=== PATIENT | male | born 1945 | race Caucasian/White ===

== ENCOUNTER 2019-02-05 17:53 | Emergency (ER) | payer MEDICARE, BC ==
[2019-02-05] MEDS ORDERED: Sodium Chloride 0.9% 10 ML Syringe FLUSH PRN ×2 (18:31→21:24)
[2019-02-05] MEDS ORDERED: Cefepime 2 GM in Sodium Chloride 0.9% 100 ML IV ONE (18:31)
--- NOTE | 2019-02-05 18:37 | EDM.PDOC ---
<Duke Orozco W - Last Filed: 02/05/19 23:12> ED HPI GENERAL MEDICAL PROBLEM - General Chief Complaint: Fever Stated Complaint: fever Time Seen by Provider: 02/05/19 17:59 - History of Present Illness INITIAL COMMENTS - FREE TEXT/NARRATIVE: Cont Duke Orozco PA-C Assumed care for patient at shift change. Pt. last round of chemo 02/03/19 consisting of Taxotere, dexamethasone and Gemcitabine. He also had a Neulasta injection. WBC that day were 3.1. Pt. denies any rash. No nausea or vomiting. He states that he did have some bright red blood on the toilet paper when he wiped after having a BM today. No melena. No hematemesis. Complains of some LLQ abdominal pain, but states that he has this intermittently in the past. No known history of diverticulosis or diverticulitis. Denies any dysuria. Denies any blood in his urine. No chest pain or shortness of breath. Denies any cough. - Related Data Allergies Allergy/AdvReac Type Severity Reaction Status Date / Time No Known Allergies Allergy Verified 02/05/19 18:07 Home Meds: Home Meds Allopurinol [Zyloprim] 150 mg PO DAILY 02/05/19 [History] Aspirin 81 mg PO DAILY 02/05/19 [History] Carbidopa/Levodopa [Sinemet 25-100 mg Tablet] 1 each PO TID 02/05/19 [History] Cetirizine [ZyrTEC] 10 mg PO DAILY 02/05/19 [History] Cholecalciferol (Vitamin D3) [Vitamin D3] 1,000 unit PO DAILY 02/05/19 [History] Docusate Sodium [Stool Softener] 250 mg PO DAILY 02/05/19 [History] Docusate Sodium/Sennosides [Senokot-S] 1 each PO DAILY 02/05/19 [History] Flecainide [Tambocor] 50 mg PO Q12H 02/05/19 [History] Hydrocodone/Acetaminophen [[place] 10-325 Tablet] 1 each PO Q4H PRN 02/05/19 [ History] Lansoprazole [Prevacid] 15 mg PO DAILY 02/05/19 [History] Metoprolol Succinate [Toprol XL 100mg] 50 mg PO DAILY 02/05/19 [History] Prochlorperazine Maleate [Compazine] 10 mg PO QID 02/05/19 [History] Course - Vital Signs Last Recorded V/S: Last Vital Signs Temp 37.6 C 02/05/19 17:53 Pulse 96 02/05/19 17:53 Resp 18 02/05/19 17:53 BP 116/63 02/05/19 17:53 Pulse Ox 96 02/05/19 17:53 - Orders/Labs/Meds Labs: Laboratory Tests 02/05/19 02/05/19 02/05/19 Range/Units 19:05 19:05 19:05 WBC 6.0 (4.0-10.0) x10^3/uL RBC 3.00 L (4.5-6.0) x10^6/uL Hgb 9.4 L (14.0-18.0) g/dL Hct 28.1 L (40.0-52.0) % MCV 93.7 H (78.0-93.0) fL MCH 31.3 (26.0-32.0) pg MCHC 33.5 (32.0-36.0) g/dL RDW Coeff of [place] 14.3 (10.0-15.0) % Plt Count 65 L (130-400) x10^3/uL Neut % (Auto) 81.9 H (50.0-80.0) % Lymph % (Auto) 14.0 L (25.0-50.0) % Moody % (Auto) 0.5 L (2.0-11.0) % Eos % (Auto) 3.3 (0.0-4.0) % Baso % (Auto) 0.3 (0.2-1.2) % Sodium 137 (136-145) mmol/L Potassium 3.9 (3.5-5.1) mmol/L Chloride 102 (98-107) mmol/L Carbon Dioxide 24 (21-32) mmol/L Anion Gap 14.9 (10-20) mmol/L BUN 18 (7-18) mg/dL Creatinine 0.7 (0.70-1.30) mg/dL Est Cr Clr Drug Dosing TNP Estimated GFR (MDRD) > 60 Glucose 122 H (74-106) mg/dL Lactic Acid 0.7 (0.4-2.0) mmol/L Calcium 8.6 (8.5-10.1) mg/dL Corrected Calcium 9.40 (8.5-10.1) mg/dL Total Bilirubin 0.6 (0.2-1.0) mg/dL AST 32 (15-37) U/L ALT 19 (16-63) U/L Alkaline Phosphatase 75 (46-116) U/L C-Reactive Protein 8.1 H (<=0.9) mg/dL Total Protein 6.5 (6.4-8.2) g/dL Albumin 3.0 L (3.4-5.0) g/dL Globulin 3.5 Albumin/Globulin Ratio 0.86 Urine Color (YELLOW) POC Urine Appearance (CLEAR) POC Urine pH (5.0-8.0) Ur Specific [place] (1.005-1.030) POC Urine Protein (NEGATIVE) POC Ur Glucose (UA) (NEGATIVE) POC Urine Ketones (NEGATIVE) POC Ur Occult Blood (NEGATIVE) POC Urine Nitrite (NEGATIVE) POC Urine Bilirubin (NEGATIVE) POC Urine Urobilinogen (0.2) POC U Leukocyte Esteras (NEGATIVE) 02/05/19 Range/Units 22:00 WBC (4.0-10.0) x10^3/uL RBC (4.5-6.0) x10^6/uL Hgb (14.0-18.0) g/dL Hct (40.0-52.0) % MCV (78.0-93.0) fL MCH (26.0-32.0) pg MCHC (32.0-36.0) g/dL RDW Coeff of [place] (10.0-15.0) % Plt Count (130-400) x10^3/uL Neut % (Auto) (50.0-80.0) % Lymph % (Auto) (25.0-50.0) % Moody % (Auto) (2.0-11.0) % Eos % (Auto) (0.0-4.0) % Baso % (Auto) (0.2-1.2) % Sodium (136-145) mmol/L Potassium (3.5-5.1) mmol/L Chloride (98-107) mmol/L Carbon Dioxide (21-32) mmol/L Anion Gap (10-20) mmol/L BUN (7-18) mg/dL Creatinine (0.70-1.30) mg/dL Est Cr Clr Drug Dosing Estimated GFR (MDRD) Glucose (74-106) mg/dL Lactic Acid (0.4-2.0) mmol/L Calcium (8.5-10.1) mg/dL Corrected Calcium (8.5-10.1) mg/dL Total Bilirubin (0.2-1.0) mg/dL AST (15-37) U/L ALT (16-63) U/L Alkaline Phosphatase (46-116) U/L C-Reactive Protein (<=0.9) mg/dL Total Protein (6.4-8.2) g/dL Albumin (3.4-5.0) g/dL Globulin Albumin/Globulin Ratio Urine Color Swain H (YELLOW) POC Urine Appearance Clear (CLEAR) POC Urine pH 6.5 (5.0-8.0) Ur Specific [place] 1.015 (1.005-1.030) POC Urine Protein 30 H (NEGATIVE) POC Ur Glucose (UA) Negative (NEGATIVE) POC Urine Ketones Negative (NEGATIVE) POC Ur Occult Blood Negative (NEGATIVE) POC Urine Nitrite Negative (NEGATIVE) POC Urine Bilirubin Small (NEGATIVE) POC Urine Urobilinogen 1.0 (0.2) POC U Leukocyte Esteras Negative (NEGATIVE) Meds: Medications Discontinued Medications Generic Name Dose Route Start Last Admin Trade Name Kevq PRN Reason Stop Dose Admin Doxycycline Monohydrate 1 packet 02/05/19 22:17 02/05/19 22:33 Take Home: Doxycycline 100 Mg, 4 Tab Pack PO 02/05/19 22:18 1 packet ONETIME ONE Administration Heparin Sodium (Porcine) Confirm 02/05/19 22:42 02/05/19 22:45 Heparin Lock Flush 100 Units/Ml Administered 02/05/19 22:43 500 units Dose Administration 500 units .ROUTE .STK-MED ONE Cefepime HCl 2 gm/ Sodium 100 mls @ 200 mls/hr 02/05/19 18:31 02/05/19 19:11 Chloride IV 02/05/19 19:00 200 mls/hr STAT ONE Administration Sodium Chloride 1,000 mls @ 100 mls/hr 02/05/19 21:07 02/05/19 21:23 Normal Saline IV 02/06/19 07:06 100 mls/hr .BOLUS ONE Administration Iopamidol 100 ml 02/05/19 20:06 02/05/19 20:56 Isovue-300 (61%) IVPUSH 02/05/19 20:07 100 ml ONETIME ONE Administration Sodium Chloride 10 ml 02/05/19 18:31 Saline Flush FLUSH ASDIRECTED PRN Keep Vein Open Sodium Chloride 10 ml 02/05/19 21:24 Saline Flush FLUSH ASDIRECTED PRN Keep Vein Open - Radiology Interpretation Free Text/Narrative:: CT chest abdomen and pelvis revealed some mild bibasilar atelectasis but no acute infiltrate. Departure - Departure Time of Disposition: 10:15 Disposition: Home, Self-Care 01 Clinical Impression: Fever chills, Atelectasis - Discharge Information Instructions: Doxycycline tablets or capsules, Acetaminophen tablets or caplets , Fever, Adult, [id number] Referrals: Suri Daniels MD [Primary Care Provider] - Forms: ED Department Discharge Additional Instructions: Start doxycycline 100mg twice daily for 10 days. Continue with your other medications. Tylenol as needed for fever/discomfort. Return to ER if worsening fever, lightheadedness, confusion, abdominal pain, chest pain, or shortness of breath. Follow-up with heme/onc in 7-10 days, sooner if continuing to have problems. You are certainly welcome to return to the ER or feel free to call at any time. - Assessment/Plan Plan: Start doxycycline 100mg twice daily for 10 days. Continue with your other medications. Tylenol as needed for fever/discomfort. Return to ER if worsening fever, lightheadedness, confusion, abdominal pain, chest pain, or shortness of breath. Follow-up with heme/onc in 7-10 days, sooner if continuing to have problems. You are certainly welcome to return to the ER or feel free to call at any time. <Fede Jimenez - Last Filed: 02/07/19 07:47> ED HPI GENERAL MEDICAL PROBLEM - General Source of Information: Reports: Patient, Family, Provider (Dr. Rosa at [facility] consulted, orders received) History Limitations: Reports: No Limitations - History of Present Illness INITIAL COMMENTS - FREE TEXT/NARRATIVE: Patient comes in with concerns for fever. Temperature at home was over 101F and he states he has chills. They did call oncologist production operator at [facility] and were told to present to the ER for neutropenic concerns Received last round of chemo on . He has no other complaints this evening. 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 Dr. Duke Rosa contacted regarding patient concerns. Onset: Sudden Duration: Intermittent Severity: Moderate Past Medical History Oncologic (Cancer) History: Reports: Other (See Below) Other Oncologic History: sarcoma Social & Family History - Tobacco Use Smoking Status *Q: Unknown Ever Smoked ED ROS GENERAL - Review of Systems Review Of Systems: See Below Constitutional: Reports: Fever, Chills HEENT: Reports: No Symptoms Respiratory: Reports: No Symptoms Cardiovascular: Reports: No Symptoms Endocrine: Reports: No Symptoms GI/Abdominal: Reports: No Symptoms : Reports: No Symptoms Musculoskeletal: Reports: No Symptoms Skin: Reports: No Symptoms Neurological: Reports: Other (shaking of the hands) Psychiatric: Reports: No Symptoms Hematologic/Lymphatic: Reports: No Symptoms Immunologic: Reports: No Symptoms ED EXAM, SEPSIS - Physical Exam Exam: See Below Exam Limited By: No Limitations General Appearance: Alert, WD/WN, No Apparent Distress Eye Exam: Bilateral Eye: EOMI, PERRL Ears: Normal TMs Throat/Mouth: Normal Inspection, Normal Lips, Normal Teeth, Normal Gums, Normal Oropharynx, Normal Voice, No Airway Compromise Head: Atraumatic, Normocephalic Neck: Normal Inspection, Supple, Non-Tender, Full Range of Motion Respiratory/Chest: No Respiratory Distress, Lungs Clear, Normal Breath Sounds, No Accessory Muscle Use, Chest Non-Tender Cardiovascular: Normal Peripheral Pulses, Regular Rate, Rhythm, No Edema, No Gallop, No JVD, No Murmur, No Rub GI/Abdominal Exam: Normal Bowel Sounds, Soft, Non-Tender, No Organomegaly, No Distention, No Abnormal Bruit, No Mass, Pelvis Stable Back: Normal Inspection, Full Range of Motion, NT Extremities: Normal Inspection, Normal Range of Motion, Non-Tender, No Pedal Edema, Normal Capillary Refill Neurological: Alert, Oriented, CN II-XII Intact, Normal Cognition, Normal Gait, Normal Reflexes, No Motor/Sensory Deficits Psychiatric: Normal Affect, Normal Mood Skin: Warm, Dry, Intact, Normal Color, No Rash Lymphatic: Bilateral: No Adenopathy Course - Orders/Labs/Meds Labs: Laboratory Tests 02/05/19 02/05/19 02/05/19 Range/Units 19:05 19:05 19:05 WBC 6.0 (4.0-10.0) x10^3/uL RBC 3.00 L (4.5-6.0) x10^6/uL Hgb 9.4 L (14.0-18.0) g/dL Hct 28.1 L (40.0-52.0) % MCV 93.7 H (78.0-93.0) fL MCH 31.3 (26.0-32.0) pg MCHC 33.5 (32.0-36.0) g/dL RDW Coeff of [place] 14.3 (10.0-15.0) % Plt Count 65 L (130-400) x10^3/uL Neut % (Auto) 81.9 H (50.0-80.0) % Lymph % (Auto) 14.0 L (25.0-50.0) % Moody % (Auto) 0.5 L (2.0-11.0) % Eos % (Auto) 3.3 (0.0-4.0) % Baso % (Auto) 0.3 (0.2-1.2) % Sodium 137 (136-145) mmol/L Potassium 3.9 (3.5-5.1) mmol/L Chloride 102 (98-107) mmol/L Carbon Dioxide 24 (21-32) mmol/L Anion Gap 14.9 (10-20) mmol/L BUN 18 (7-18) mg/dL Creatinine 0.7 (0.70-1.30) mg/dL Est Cr Clr Drug Dosing TNP Estimated GFR (MDRD) > 60 Glucose 122 H (74-106) mg/dL Lactic Acid 0.7 (0.4-2.0) mmol/L Calcium 8.6 (8.5-10.1) mg/dL Corrected Calcium 9.40 (8.5-10.1) mg/dL Total Bilirubin 0.6 (0.2-1.0) mg/dL AST 32 (15-37) U/L ALT 19 (16-63) U/L Alkaline Phosphatase 75 (46-116) U/L C-Reactive Protein 8.1 H (<=0.9) mg/dL Total Protein 6.5 (6.4-8.2) g/dL Albumin 3.0 L (3.4-5.0) g/dL Globulin 3.5 Albumin/Globulin Ratio 0.86 Urine Color (YELLOW) POC Urine Appearance (CLEAR) POC Urine pH (5.0-8.0) Ur Specific [place] (1.005-1.030) POC Urine Protein (NEGATIVE) POC Ur Glucose (UA) (NEGATIVE) POC Urine Ketones (NEGATIVE) POC Ur Occult Blood (NEGATIVE) POC Urine Nitrite (NEGATIVE) POC Urine Bilirubin (NEGATIVE) POC Urine Urobilinogen (0.2) POC U Leukocyte Esteras (NEGATIVE) 02/05/19 Range/Units 22:00 WBC (4.0-10.0) x10^3/uL RBC (4.5-6.0) x10^6/uL Hgb (14.0-18.0) g/dL Hct (40.0-52.0) % MCV (78.0-93.0) fL MCH (26.0-32.0) pg MCHC (32.0-36.0) g/dL RDW Coeff of [place] (10.0-15.0) % Plt Count (130-400) x10^3/uL Neut % (Auto) (50.0-80.0) % Lymph % (Auto) (25.0-50.0) % Moody % (Auto) (2.0-11.0) % Eos % (Auto) (0.0-4.0) % Baso % (Auto) (0.2-1.2) % Sodium (136-145) mmol/L Potassium (3.5-5.1) mmol/L Chloride (98-107) mmol/L Carbon Dioxide (21-32) mmol/L Anion Gap (10-20) mmol/L BUN (7-18) mg/dL Creatinine (0.70-1.30) mg/dL Est Cr Clr Drug Dosing Estimated GFR (MDRD) Glucose (74-106) mg/dL Lactic Acid (0.4-2.0) mmol/L Calcium (8.5-10.1) mg/dL Corrected Calcium (8.5-10.1) mg/dL Total Bilirubin (0.2-1.0) mg/dL AST (15-37) U/L ALT (16-63) U/L Alkaline Phosphatase (46-116) U/L C-Reactive Protein (<=0.9) mg/dL Total Protein (6.4-8.2) g/dL Albumin (3.4-5.0) g/dL Globulin Albumin/Globulin Ratio Urine Color Swain H (YELLOW) POC Urine Appearance Clear (CLEAR) POC Urine pH 6.5 (5.0-8.0) Ur Specific [place] 1.015 (1.005-1.030) POC Urine Protein 30 H (NEGATIVE) POC Ur Glucose (UA) Negative (NEGATIVE) POC Urine Ketones Negative (NEGATIVE) POC Ur Occult Blood Negative (NEGATIVE) POC Urine Nitrite Negative (NEGATIVE) POC Urine Bilirubin Small (NEGATIVE) POC Urine Urobilinogen 1.0 (0.2) POC U Leukocyte Esteras Negative (NEGATIVE) Meds: Medications Discontinued Medications Generic Name Dose Route Start Last Admin Trade Name Freq PRN Reason Stop Dose Admin Doxycycline Monohydrate 1 packet 02/05/19 22:17 02/05/19 22:33 Take Home: Doxycycline 100 Mg, 4 Tab Pack PO 02/05/19 22:18 1 packet ONETIME ONE Administration Heparin Sodium (Porcine) Confirm 02/05/19 22:42 02/05/19 22:45 Heparin Lock Flush 100 Units/Ml Administered 02/05/19 22:43 500 units Dose Administration 500 units .ROUTE .STK-MED ONE Cefepime HCl 2 gm/ Sodium 100 mls @ 200 mls/hr 02/05/19 18:31 02/05/19 19:11 Chloride IV 02/05/19 19:00 200 mls/hr STAT ONE Administration Sodium Chloride 1,000 mls @ 100 mls/hr 02/05/19 21:07 02/05/19 21:23 Normal Saline IV 02/06/19 07:06 100 mls/hr .BOLUS ONE Administration Iopamidol 100 ml 02/05/19 20:06 02/05/19 20:56 Isovue-300 (61%) IVPUSH 02/05/19 20:07 100 ml ONETIME ONE Administration Sodium Chloride 10 ml 02/05/19 18:31 Saline Flush FLUSH ASDIRECTED PRN Keep Vein Open Sodium Chloride 10 ml 02/05/19 21:24 Saline Flush FLUSH ASDIRECTED PRN Keep Vein Open ED Communication - ED Communication Date/Time Date: 01/29/19 Time Called: 18:00 - Discussed Case With (1) Discussed Case With (1): 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 Rosa was contacted as patient stated I was to do so. Plan for labs was developed including CBC, lactic acid, blood cultures)
[2019-02-05 19:46] LABS: CHLORIDE,CL 102 mmol/L (98-107); SODIUM,NA 137 mmol/L (136-145)
[2019-02-05 20:01] LABS: ANION GAP 14.9 mmol/L (10-20)
[2019-02-05] MEDS ORDERED: Iopamidol 612 MG/ML 100 ML Bottle IVPUSH ONE (20:06)
[2019-02-05] MEDS ORDERED: Sodium Chloride 0.9% 1,000 ML IV ONE (21:07)
[2019-02-05] MEDS ORDERED: Take Home: Doxycycline 100 MG Tab, 4 Tab Pack PO ONE (22:17)
--- NOTE | 2019-02-06 12:03 | CT ---
[id number] CT/CT Chest Abdomen Pelvis W IV Exam: CT Chest Abdomen Pelvis W IV Clinical Data: FEVER OF UNKNOWN ORIGIN. PATIENT ON CHEMOTHERAPY. COMPARISON: NO PREVIOUS SIMILAR EXAM IS AVAILABLE FINDINGS: There is minimal scarring at the left lung base. There is no acute infiltrate. Question is raised if there has been previous surgery at the left lung base. The mediastinum shows no mass or adenopathy. The great vessels are intact. A chest port is present. The liver and spleen, kidneys and adrenals, pancreas and aorta are unremarkable. The gallbladder is not distended. There is no evidence of appendicitis. The pelvis shows no mass, adenopathy, or abscess. IMPRESSION: NO ACUTE ABNORMALITY IDENTIFIED. Alejandro Lizarraga MD 02/06/19 [id number] Thank you for allowing us to participate in the care of your patient.
== END 2019-02-05 22:55 | disposition home or self-care (01) ==
LOC: VM.ED 17:53
DX: J98.11 Atelectasis (principal); R50.9 Fever, unspecified; Z79.82 Long term (current) use of aspirin; Z79.899 Other long term (current) drug therapy
CPT/HCPCS: 36415; 71260; 74177; 80053; 81002; 83605; 85025; 86140; 87040; 87804; 96361; 96365; 96375; 99284; A9270; J0692; J1642; J7030; J7050; Q9967; 99283-GF

== ENCOUNTER 2019-12-16 16:39 | Inpatient (IN) | payer MEDICARE, BC ==
[2019-12-16] MEDS ORDERED: Sodium Chloride 0.9% 10 ML Syringe FLUSH PRN (16:44)
[2019-12-16] MEDS ORDERED: Piperacillin/Tazobactam 4.5 GM in Sodium Chloride 0.9% 100 ML IV ONE (17:06)
--- NOTE | 2019-12-16 17:06 | EDM.PDOC ---
ED HPI GENERAL MEDICAL PROBLEM - General Chief Complaint: Fever Time Seen by Provider: 12/16/19 16:41 Source of Information: Reports: Patient, Family, Old Records History Limitations: Reports: No Limitations - History of Present Illness INITIAL COMMENTS - FREE TEXT/NARRATIVE: Pt. presents to ER with complaints of weakness. 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 He is currently on his third chemo regimen (lartuvo) due to worsening metastatic disease, previously having been on Gemzar and Docetaxal and then on Yondelis. Pt. was seen in the clinic by oncology yesterday. He was unable to undergo chemo yesterday due to pancytopenia. Yesterday his WBCs were 2.6, HGB was 8.8, and platlets were 30. He was afebrile, and was sent home. He states that today his weakness worsened. He was unable to transfer off the toilet. Pt. called his oncologist who advised she call 911 and have the patient brought to the ER. Today, the patient has been febrile, chilled and extremely weak. Denies any rashes. No significant cough. No sore throat. Denies any ear pain. No sinus congestion. No rhinorrhea. He denies any dysuria, frequency or urgency. He has not noticed if his urine has been dark or concentrated. Pt. denies any abdominal discomfort. No nausea, vomiting, or diarrhea. No melena , hematochezia, or hematemesis. Onset: Today Onset Date: 12/16/19 Location: Reports: Generalized Associated Symptoms: Reports: Fever/Chills, Loss of Appetite, Malaise, Weakness - Related Data Allergies Allergy/AdvReac Type Severity Reaction Status Date / Time No Known Allergies Allergy Verified 12/16/19 16:58 Home Meds: Home Meds Aspirin 81 mg PO DAILY 02/05/19 [History] Carbidopa/Levodopa [Sinemet 25-100 mg Tablet] 1.5 each PO TID 02/05/19 [History] Cholecalciferol (Vitamin D3) [Vitamin D3] 4,000 unit PO DAILY 02/05/19 [History] Flecainide [Tambocor] 50 mg PO Q12H 02/05/19 [History] Lansoprazole [Prevacid] 15 mg PO DAILY 02/05/19 [History] Metoprolol Succinate [Toprol XL 100mg] 50 mg PO DAILY 02/05/19 [History] Prochlorperazine Maleate [Compazine] 10 mg PO QID PRN 02/05/19 [History] allopurinoL [Zyloprim] 150 mg PO DAILY 02/05/19 [History] Acetaminophen [Tylenol] 650 mg PO Q4H PRN 12/16/19 [History] Cyanocobalamin (Vitamin B12) [Vitamin B12] 250 mcg PO DAILY 12/16/19 [History] Docusate Sodium [Colace] 100 mg PO BID 12/16/19 [History] Multivitamin with Minerals [Multiple Vitamin] 1 tab PO DAILY 12/16/19 [History] Ondansetron [Zofran] 8 mg PO Q8H PRN 12/16/19 [History] Polyethylene Glycol 3350 [MiraLAX] 1 pack PO DAILY PRN 12/16/19 [History] Simvastatin [Zocor] 10 mg PO BEDTIME 12/16/19 [History] Sodium Chloride [Saline Nasal [place]] 2 sprays INH Q2HR PRN 12/16/19 [History] dexAMETHasone [Dexamethasone] 8 mg PO DAILY 12/16/19 [History] Past Medical History Cardiovascular History: Reports: Afib, Arrhythmia, High Cholesterol Musculoskeletal History: Reports: Gout, Osteoarthritis Neurological History: Reports: Parkinson's Oncologic (Cancer) History: Reports: Other (See Below) Other Oncologic History: sarcoma - Past Surgical History Respiratory Surgical History: Reports: Lung Biopsies, Lung Resection Social & Family History - Tobacco Use Smoking Status *Q: Former Smoker ED ROS GENERAL - Review of Systems Review Of Systems: See Below Constitutional: Reports: Fever, Chills, Malaise, Weakness, Fatigue HEENT: Reports: No Symptoms Respiratory: Reports: No Symptoms Cardiovascular: Reports: No Symptoms, Other (fatigue). Denies: Chest Pain, Palpitations Endocrine: Reports: No Symptoms GI/Abdominal: Reports: No Symptoms : Reports: No Symptoms Musculoskeletal: Reports: No Symptoms Skin: Reports: No Symptoms Neurological: Reports: No Symptoms, Other (No neck stiffness). Denies: Headache , Numbness Psychiatric: Reports: No Symptoms Hematologic/Lymphatic: Reports: Other (pancytopenia) Immunologic: Reports: No Symptoms ED EXAM, GENERAL - Physical Exam Exam: See Below Exam Limited By: No Limitations General Appearance: Alert, No Apparent Distress Eye Exam: Bilateral Eye: EOMI, Normal Fundi, Normal Inspection, PERRL Ears: Normal External Exam, Normal Canal, Hearing Grossly Normal, Normal TMs Ear Exam: Bilateral Ear: Auricle Normal, Canal Normal, TM normal Nose: Normal Inspection, Normal Mucosa, No Blood Throat/Mouth: Normal Inspection, Normal Lips, Normal Teeth, Normal Gums, Normal Oropharynx, Normal Voice, No Airway Compromise Head: Atraumatic, Normocephalic Neck: Normal Inspection, Supple, Non-Tender, Full Range of Motion Respiratory/Chest: No Respiratory Distress, Lungs Clear, Normal Breath Sounds, No Accessory Muscle Use, Chest Non-Tender Cardiovascular: Normal Peripheral Pulses, Regular Rate, Rhythm, Tachycardia, Other Peripheral Pulses: 4+: Radial (L) GI/Abdominal: Soft, Non-Tender, No Organomegaly, No Distention, No Mass (Male) Exam: Deferred Rectal (Males) Exam: Deferred Back Exam: Normal Inspection, Full Range of Motion Extremities: Normal Inspection, Normal Range of Motion, Non-Tender, No Pedal Edema, Normal Capillary Refill, Other (L AKA, no edema on R. states he had been experiencing some edema to the extremity that has improved with Lasix.) Neurological: Alert, Oriented, CN II-XII Intact, Normal Cognition, No Motor/ Sensory Deficits, Slow to Respond Psychiatric: Normal Affect, Flat Affect Skin Exam: Warm, Dry, Normal Color, No Rash Lymphatic: No Adenopathy EKG INTERPRETATION Rhythm: NSR QRS: RBBB Course - Vital Signs Last Recorded V/S: Last Vital Signs Temp 35.9 C 12/18/19 14:00 Pulse 79 12/18/19 14:00 Resp 18 12/18/19 09:05 BP 115/62 12/18/19 14:00 Pulse Ox 97 12/18/19 14:00 - Orders/Labs/Meds Orders: Medication Orders Acetaminophen (Tylenol) 650 mg PO Q4H PRN PRN Reason: Pain (Mild 1-3)/fever Last Admin: 12/17/19 16:02 Dose: 650 mg Admin: 12/17/19 03:43 Dose: 650 mg Allopurinol (Zyloprim) 150 mg PO DAILY [facility] Last Admin: 12/18/19 07:40 Dose: 150 mg Admin: 12/17/19 08:51 Dose: 150 mg Aspirin (Aspirin) 81 mg PO DAILY [facility] Last Admin: 12/18/19 07:42 Dose: 81 mg Admin: 12/17/19 08:52 Dose: 81 mg Carbidopa/Levodopa (Sinemet 25-100 Mg) 1.5 tab PO TID [facility] Last Admin: 12/18/19 11:27 Dose: 1.5 tab Admin: 12/18/19 07:39 Dose: 1.5 tab Admin: 12/17/19 20:35 Dose: 1.5 tab Admin: 12/17/19 11:11 Dose: 1.5 tab Admin: 12/17/19 08:50 Dose: 1.5 tab Admin: 12/16/19 20:38 Dose: 1.5 tab Flecainide Acetate (Tambocor) 50 mg PO Q12HR [facility] Last Admin: 12/18/19 07:40 Dose: 50 mg Admin: 12/17/19 20:37 Dose: 50 mg Admin: 12/17/19 08:51 Dose: 50 mg Admin: 12/16/19 20:38 Dose: 50 mg Piperacillin Sod/Tazobactam (Sod 3.375 gm/ Sodium Chloride) 100 mls @ 200 mls/ hr IV Q6H [facility] Last Admin: 12/18/19 08:59 Dose: 200 mls/hr Metoprolol Succinate (Toprol Xl) 50 mg PO DAILY [facility] Last Admin: 12/18/19 07:40 Dose: 50 mg Admin: 12/17/19 08:52 Dose: 50 mg Omeprazole (Omeprazole) 20 mg PO DAILY@0700 [facility] Last Admin: 12/18/19 06:43 Dose: 20 mg Admin: 12/17/19 06:37 Dose: 20 mg Ondansetron HCl (Zofran Odt) 8 mg PO Q8H PRN PRN Reason: NAUSEA Prochlorperazine Maleate (Compazine) 10 mg PO QID PRN PRN Reason: VOMITING Last Admin: 12/18/19 06:43 Dose: 10 mg Admin: 12/17/19 17:45 Dose: 10 mg Admin: 12/16/19 20:38 Dose: 10 mg Simvastatin (Zocor) 10 mg PO BEDTIME [facility] Last Admin: 12/17/19 20:36 Dose: 10 mg Admin: 12/16/19 20:38 Dose: 10 mg Sodium Chloride (Saline Flush) 10 ml FLUSH ASDIRECTED PRN PRN Reason: Keep Vein Open Last Admin: 12/16/19 22:57 Dose: 10 ml Sodium Chloride ([place] Nasal [place]) 0 ml NASBOTH Q2H PRN PRN Reason: Congestion Labs: Laboratory Tests 12/16/19 12/16/19 12/16/19 Range/Units 17:05 17:07 17:07 WBC 4.5 (4.0-10.0) x10^3/uL RBC 2.43 L (4.5-6.0) x10^6/uL Hgb 8.6 L (14.0-18.0) g/dL Hct 25.4 L (40.0-52.0) % MCV 104.5 H D (78.0-93.0) fL MCH 35.4 H (26.0-32.0) pg MCHC 33.9 (32.0-36.0) g/dL RDW Coeff of [place] 14.8 (10.0-15.0) % Plt Count 45 L* (130-400) x10^3/uL Neut % (Auto) 60.2 (50.0-80.0) % Lymph % (Auto) 24.1 L (25.0-50.0) % [place] % (Auto) 15.5 H (2.0-11.0) % Eos % (Auto) 0.0 (0.0-4.0) % Baso % (Auto) 0.2 (0.2-1.2) % PT 11.3 (10.0-12.8) SEC INR 1.0 L (2.0-3.5) Sodium (136-145) mmol/L Potassium (3.5-5.1) mmol/L Chloride (98-107) mmol/L Carbon Dioxide (21-32) mmol/L Anion Gap (10-20) mmol/L BUN (7-18) mg/dL Creatinine (0.70-1.30) mg/dL Est Cr Clr Drug Dosing Estimated GFR (MDRD) Glucose (74-106) mg/dL Lactic Acid (0.4-2.0) mmol/L Calcium (8.5-10.1) mg/dL Corrected Calcium (8.5-10.1) mg/dL Phosphorus (2.6-4.7) mg/dL Magnesium (1.8-2.4) mg/dL Total Bilirubin (0.2-1.0) mg/dL AST (15-37) U/L ALT (16-63) U/L Alkaline Phosphatase (46-116) U/L Troponin I (<=0.056) ng/mL C-Reactive Protein (<=0.9) mg/dL Total Protein (6.4-8.2) g/dL Albumin (3.4-5.0) g/dL Globulin Albumin/Globulin Ratio TSH, Ultra Sensitive (0.358-3.74) uIU/mL Urine Color Dark yellow H (YELLOW) Urine Appearance Cloudy H (CLEAR) Urine pH 5.5 (5.0-8.0) Ur Specific [place] 1.020 Urine Protein 30 H (NEGATIVE) mg/dL Urine Glucose (UA) Negative (NEGATIVE) mg/dL Urine Ketones Negative (NEGATIVE) mg/dL Urine Occult Blood Moderate H (NEGATIVE) Urine Nitrite Positive H (NEGATIVE) Urine Bilirubin Small H (NEGATIVE) Urine Urobilinogen 1.0 (0.2) EU/dL Ur Leukocyte Esterase Small H (NEGATIVE) Urine RBC 10-20 H (NOT SEEN) /HPF Urine WBC 5-10 H (NOT SEEN) /HPF Ur Squamous Epith Cells Rare (NEGATIVE) /HPF Urine Bacteria Moderate H (NEGATIVE) /HPF Urine Mucus Few H (NEGATIVE) /LPF 12/16/19 12/16/19 Range/Units 17:07 17:07 WBC (4.0-10.0) x10^3/uL RBC (4.5-6.0) x10^6/uL Hgb (14.0-18.0) g/dL Hct (40.0-52.0) % MCV (78.0-93.0) fL MCH (26.0-32.0) pg MCHC (32.0-36.0) g/dL RDW Coeff of [place] (10.0-15.0) % Plt Count (130-400) x10^3/uL Neut % (Auto) (50.0-80.0) % Lymph % (Auto) (25.0-50.0) % Ramsey % (Auto) (2.0-11.0) % Eos % (Auto) (0.0-4.0) % Baso % (Auto) (0.2-1.2) % PT (10.0-12.8) SEC INR (2.0-3.5) Sodium 140 (136-145) mmol/L Potassium 3.8 (3.5-5.1) mmol/L Chloride 104 (98-107) mmol/L Carbon Dioxide 26 (21-32) mmol/L Anion Gap 13.8 (10-20) mmol/L BUN 10 (7-18) mg/dL Creatinine 0.9 (0.70-1.30) mg/dL Est Cr Clr Drug Dosing TNP Estimated GFR (MDRD) > 60 Glucose 102 (74-106) mg/dL Lactic Acid 1.9 (0.4-2.0) mmol/L Calcium 8.7 (8.5-10.1) mg/dL Corrected Calcium 9.82 (8.5-10.1) mg/dL Phosphorus 2.4 L (2.6-4.7) mg/dL Magnesium 1.1 L (1.8-2.4) mg/dL Total Bilirubin 0.6 (0.2-1.0) mg/dL AST 61 H (15-37) U/L ALT 50 (16-63) U/L Alkaline Phosphatase 320 H (46-116) U/L Troponin I 0.209 H* (<=0.056) ng/mL C-Reactive Protein 3.0 H (<=0.9) mg/dL Total Protein 5.9 L (6.4-8.2) g/dL Albumin 2.6 L (3.4-5.0) g/dL Globulin 3.3 Albumin/Globulin Ratio 0.79 TSH, Ultra Sensitive 0.435 (0.358-3.74) uIU/mL Urine Color (YELLOW) Urine Appearance (CLEAR) Urine pH (5.0-8.0) Ur Specific [place] Urine Protein (NEGATIVE) mg/dL Urine Glucose (UA) (NEGATIVE) mg/dL Urine Ketones (NEGATIVE) mg/dL Urine Occult Blood (NEGATIVE) Urine Nitrite (NEGATIVE) Urine Bilirubin (NEGATIVE) Urine Urobilinogen (0.2) EU/dL Ur Leukocyte Esterase (NEGATIVE) Urine RBC (NOT SEEN) /HPF Urine WBC (NOT SEEN) /HPF Ur Squamous Epith Cells (NEGATIVE) /HPF Urine Bacteria (NEGATIVE) /HPF Urine Mucus (NEGATIVE) /LPF Meds: Medications Generic Name Dose Route Start Last Admin Trade Name Freq PRN Reason Stop Dose Admin Acetaminophen 650 mg 12/16/19 19:59 12/17/19 16:02 Tylenol PO 650 mg Q4H PRN Administration Pain (Mild 1-3)/fever Allopurinol 150 mg 12/17/19 08:00 12/18/19 07:40 Zyloprim PO 150 mg DAILY IJEOMA Administration Aspirin 81 mg 12/17/19 08:00 12/18/19 07:42 Aspirin PO 81 mg DAILY [facility] Administration Carbidopa/Levodopa 1.5 tab 12/16/19 20:06 12/18/19 11:27 Sinemet 25-100 Mg PO 1.5 tab TID IJEOMA Administration Flecainide Acetate 50 mg 12/16/19 20:15 12/18/19 07:40 Tambocor PO 50 mg Q12HR IJEOMA Administration Piperacillin Sod/Tazobactam 100 mls @ 200 mls/hr 12/18/19 09:00 12/18/19 08: 59 Sod 3.375 gm/ Sodium Chloride IV 200 mls/hr Q6H IJEOMA Administration Metoprolol Succinate 50 mg 12/17/19 08:00 12/18/19 07:40 Toprol Xl PO 50 mg DAILY [facility] Administration Omeprazole 20 mg 12/17/19 07:00 12/18/19 06:43 Omeprazole PO 20 mg DAILY@0700 [facility] Administration Ondansetron HCl 8 mg 12/16/19 20:30 Zofran Odt PO Q8H PRN NAUSEA Prochlorperazine Maleate 10 mg 12/16/19 20:30 12/18/19 06:43 Compazine PO 10 mg QID PRN Administration VOMITING Simvastatin 10 mg 12/16/19 20:00 12/17/19 20:36 Zocor PO 10 mg BEDTIME IJEOMA Administration Sodium Chloride 10 ml 12/16/19 16:44 12/16/19 22:57 Saline Flush FLUSH 10 ml ASDIRECTED PRN Administration Keep Vein Open Sodium Chloride 0 ml 12/16/19 20:04 [place] Nasal [place] NASBOTH Q2H PRN Congestion Discontinued Medications Generic Name Dose Route Start Last Admin Trade Name Freq PRN Reason Stop Dose Admin Acetaminophen 1,000 mg 12/16/19 18:18 12/16/19 18:38 Tylenol Extra Strength PO 12/16/19 18:19 1,000 mg ONETIME ONE Administration Piperacillin Sod/Tazobactam 100 mls @ 200 mls/hr 12/16/19 17:06 12/16/19 17: 28 Sod 4.5 gm/ Sodium Chloride IV 12/16/19 17:35 200 mls/hr STAT ONE Administration Vancomycin HCl 1.5 gm/ Sodium 250 mls @ 165 mls/hr 12/16/19 17:17 12/16/19 18 :04 Chloride IV 12/16/19 18:47 165 mls/hr STAT ONE Administration Sodium Chloride 1,000 mls @ 500 mls/hr 12/16/19 18:30 Normal Saline IV ASDIRECTED IJEOMA Sodium Chloride 1,000 mls @ 75 mls/hr 12/16/19 20:00 12/17/19 08:53 Normal Saline IV 75 mls/hr ASDIRECTED IJEOMA Administration Piperacillin Sod/Tazobactam 100 mls @ 200 mls/hr 12/16/19 23:30 12/18/19 02: 19 Sod 3.375 gm/ Sodium Chloride IV 200 mls/hr Q6H IJEOMA Administration Iopamidol 100 ml 12/16/19 18:18 12/16/19 18:42 Isovue-300 (61%) IVPUSH 12/16/19 18:19 100 ml ONETIME ONE Administration - Radiology Interpretation Free Text/Narrative:: Chest x-ray reveals R hilar mass/opacification of unclear etiology. Pt. will undergo CT of chest with contrast to determine the cause of this. He does have some atelectasis at the bases as well. Departure - Departure Time of Disposition: 18:55 Disposition: Admitted As Inpatient 68 Clinical Impression: Sepsis Qualifiers: Sepsis type: sepsis due to unspecified organism Sepsis acute organ dysfunction status: without acute organ dysfunction Qualified Code(s): A41.9 - Sepsis, unspecified organism UTI (urinary tract infection) Qualifiers: Urinary tract infection type: site unspecified Hematuria presence: without hematuria Qualified Code(s): N39.0 - Urinary tract infection, site not specified - Discharge Information Sepsis Event Note - Evaluation Sepsis Screening Result: No Definite Risk - Focused Exam Date Exam was Performed: 12/18/19 Time Exam was Performed: 15:10 - Assessment/Plan Plan: Pt. will be admitted acutely by Dr. Soto. All questions were answered.
--- NOTE | 2019-12-16 17:30 | CR ---
[id number] RAD/RAD Chest PA or AP 1V EXAM: FRONTAL CHEST INDICATION: WEAKNESS, FEVER. COMPARISON: December 22, 2009 radiographs and February 05, 2019 CT. DISCUSSION: 38 mm mass projecting over the right hilum and 16 mm nodule projecting over the apical right upper lobe. Mild linear scarring or atelectasis in the lung bases. Cardiomegaly without evidence of pulmonary edema. Right internal jugular introduced port tip right atrium. IMPRESSION: 1. Masses/nodules overlying the right hilum and right upper lobe chest CT with contrast could provide further evaluation. Bienvenido Berry MD 12/16/19 [id number] Thank you for allowing us to participate in the care of your patient.
[2019-12-16 17:57] LABS: ANION GAP 13.8 mmol/L (10-20); CHLORIDE,CL 104 mmol/L (98-107); SODIUM,NA 140 mmol/L (136-145)
[2019-12-16] MEDS ORDERED: Acetaminophen 500 MG Tab PO ONE (18:18)
[2019-12-16] MEDS ORDERED: Iopamidol 612 MG/ML 100 ML Bottle IVPUSH ONE (18:18)
[2019-12-16] MEDS ORDERED: Sodium Chloride 0.9% 1,000 ML IV SCH (18:30)
--- NOTE | 2019-12-16 19:01 | CT ---
[id number] CT/CT Chest W IV EXAM: CHEST CT WITH CONTRAST INDICATION: Mass noted on chest x-ray. COMPARISON: December 16, 2019 chest radiograph and February 05, 2019 CT. DISCUSSION: New nodules/masses likely represent metastatic disease with measurements as follows: Right upper lobe 14 x 12 mm Right lower lobe 8 mm Right middle lobe 12 mm Right middle lobe 34 x 31 mm Stable basilar scarring and left lower lobe resection changes. A right internal jugular introduced port is in satisfactory position tip within the right atrium. No mediastinal, hilar or axillary adenopathy. Normal heart size. Coronary artery calcifications. The imaged upper abdomen and osseous structures are unremarkable. IMPRESSION: 1. There are 4 new nodules/masses in the right lung likely representing metastatic disease. The largest is in the right middle lobe measuring 34 x 31 mm. Bienvenido Berry MD 12/16/19 [id number] Thank you for allowing us to participate in the care of your patient.
[2019-12-16] MEDS ORDERED: Sodium Chloride 0.65% Nasal Spray 45 ML Bottle NASBOTH PRN (20:04)
--- NOTE | 2019-12-16 20:16 | PCM.HP.2 ---
H&P History of Present Illness - General Date of Service: 12/16/19 Admit Problem/Dx: Admission Diagnosis/Problem Admission Diagnosis/Problem UTI, Urinary tract infectious disease Source of Information: Patient, Family () History Limitations: Reports: No Limitations - History of Present Illness Initial Comments - Free Text/Narative: Mr. 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 He was trying to transfer between chairs in his home when his right leg gave out, causing him to fall. His was unable to get him up and had to call EMS after which he was transported to the ER for further evaluation. He did not sustain any injuries with the fall. He did not hit his head or lose consciousness. He has had no pain anywhere after the fall. He and his note that he has been getting progressively more weak over the past 24 hours. He has also had dark malodorous urine with dysuria over the same time period. He developed chills last night and a fever today. He has had no URI symptoms, abdominal pain, diarrhea, or skin redness/rashes. He has had ongoing nausea and vomiting since his last chemotherapy and his appetite has been very poor. - Related Data Allergies/Adverse Reactions: Allergies Allergy/AdvReac Type Severity Reaction Status Date / Time No Known Allergies Allergy Verified 12/16/19 16:58 Home Medications: Home Meds Aspirin 81 mg PO DAILY 02/05/19 [History] Carbidopa/Levodopa [Sinemet 25-100 mg Tablet] 1.5 each PO TID 02/05/19 [History] Cholecalciferol (Vitamin D3) [Vitamin D3] 4,000 unit PO DAILY 02/05/19 [History] Flecainide [Tambocor] 50 mg PO Q12H 02/05/19 [History] Lansoprazole [Prevacid] 15 mg PO DAILY 02/05/19 [History] Metoprolol Succinate [Toprol XL 100mg] 50 mg PO DAILY 02/05/19 [History] Prochlorperazine Maleate [Compazine] 10 mg PO QID PRN 02/05/19 [History] allopurinoL [Zyloprim] 150 mg PO DAILY 02/05/19 [History] Acetaminophen [Tylenol] 650 mg PO Q4H PRN 12/16/19 [History] Cyanocobalamin (Vitamin B12) [Vitamin B12] 250 mcg PO DAILY 12/16/19 [History] Docusate Sodium [Colace] 100 mg PO BID 12/16/19 [History] Multivitamin with Minerals [Multiple Vitamin] 1 tab PO DAILY 12/16/19 [History] Ondansetron [Zofran] 8 mg PO Q8H PRN 12/16/19 [History] Polyethylene Glycol 3350 [MiraLAX] 1 pack PO DAILY PRN 12/16/19 [History] Simvastatin [Zocor] 10 mg PO BEDTIME 12/16/19 [History] Sodium Chloride [Saline Nasal Stuart] 2 sprays INH Q2HR PRN 12/16/19 [History] dexAMETHasone [Dexamethasone] 8 mg PO DAILY 12/16/19 [History] Past Medical History HEENT History: Reports: None Cardiovascular History: Reports: Afib, Arrhythmia, CAD, High Cholesterol Respiratory History: Reports: None Gastrointestinal History: Reports: Celiac Disease Genitourinary History: Reports: None Musculoskeletal History: Reports: Gout, Osteoarthritis Neurological History: Reports: Parkinson's Psychiatric History: Reports: None Endocrine/Metabolic History: Reports: None Hematologic History: Reports: Anemia Oncologic (Cancer) History: Reports: Other (See Below) Other Oncologic History: sarcoma Dermatologic History: Reports: None - Infectious Disease History Infectious Disease History: Reports: None - Past Surgical History Respiratory Surgical History: Reports: Lung Biopsies, Lung Resection GI Surgical History: Reports: Appendectomy, Colonoscopy, EGD Musculoskeletal Surgical History: Reports: Amputation, Arthroscopic Knee Social & Family History - Family History Cardiac: Reports: CAD Endocrine/Metabolic: Reports: Diabetes, type II - Tobacco Use Smoking Status *Q: Former Smoker Years of Tobacco use: 10 Packs/Tins Daily: 1 Used Tobacco, but Quit: Yes Month/Year Tobacco Last Used: - Alcohol Use Alcohol Use History: No Alcohol Use in Last Twelve Months: No - Recreational Drug Use Recreational Drug Use: No - Living Situation & Occupation Living situation: Reports: , with Significant Other Occupation: Retired H&P Review of Systems - Review of Systems: Review Of Systems: See Below General: Reports: Fever, Chills, Weakness HEENT: Reports: No Symptoms Pulmonary: Reports: No Symptoms Cardiovascular: Reports: No Symptoms Gastrointestinal: Reports: Nausea, Vomiting. Denies: Abdominal Pain, Diarrhea Genitourinary: Reports: Dysuria Musculoskeletal: Reports: No Symptoms Skin: Reports: No Symptoms Psychiatric: Reports: No Symptoms Neurological: Reports: No Symptoms Hematologic/Lymphatic: Reports: No Symptoms Exam - Exam Exam: See Below - Vital Signs Vital Signs: Last Vital Signs Temp 39.3 C H 12/16/19 18:08 Pulse 101 H 12/16/19 18:22 Resp 20 12/16/19 18:08 BP 134/75 12/16/19 18:22 Pulse Ox 96 12/16/19 18:22 Weight: 79.016 kg - Exam General: Alert, Oriented, Cooperative HEENT: Conjunctiva Clear, Mucosa Moist & Nettie, Posterior Pharynx Clear, Pupils Equal, Pupils Reactive Neck: Supple, Trachea Midline. No: Lymphadenopathy, Thyromegaly Lungs: Clear to Auscultation, Normal Respiratory Effort Cardiovascular: Regular Rate, Regular Rhythm, Normal S1, Normal S2 GI/Abdominal Exam: Normal Bowel Sounds, Soft, Non-Tender, No Organomegaly, No Distention, No Mass Back Exam: No: CVA Tenderness (L), CVA Tenderness (R) Extremities: Non-Tender, No Pedal Edema, Normal Capillary Refill, Other (s/p left AKA; right leg normal in appearance) Peripheral Pulses: 2+: Radial (L), Radial (R) Skin: Warm, Dry, Intact - Patient Data Lab Results Last 24 hrs: Laboratory Results - last 24 hr 12/16/19 12/16/19 12/16/19 Range/Units 17:05 17:07 17:07 WBC 4.5 (4.0-10.0) x10^3/uL RBC 2.43 L (4.5-6.0) x10^6/uL Hgb 8.6 L (14.0-18.0) g/dL Hct 25.4 L (40.0-52.0) % MCV 104.5 H D (78.0-93.0) fL MCH 35.4 H (26.0-32.0) pg MCHC 33.9 (32.0-36.0) g/dL RDW Coeff of Ansley 14.8 (10.0-15.0) % Plt Count 45 L* (130-400) x10^3/uL Neut % (Auto) 60.2 (50.0-80.0) % Lymph % (Auto) 24.1 L (25.0-50.0) % Slope % (Auto) 15.5 H (2.0-11.0) % Eos % (Auto) 0.0 (0.0-4.0) % Baso % (Auto) 0.2 (0.2-1.2) % PT 11.3 (10.0-12.8) SEC INR 1.0 L (2.0-3.5) Sodium (136-145) mmol/L Potassium (3.5-5.1) mmol/L Chloride (98-107) mmol/L Carbon Dioxide (21-32) mmol/L Anion Gap (10-20) mmol/L BUN (7-18) mg/dL Creatinine (0.70-1.30) mg/dL Est Cr Clr Drug Dosing Estimated GFR (MDRD) Glucose (74-106) mg/dL Lactic Acid (0.4-2.0) mmol/L Calcium (8.5-10.1) mg/dL Corrected Calcium (8.5-10.1) mg/dL Phosphorus (2.6-4.7) mg/dL Magnesium (1.8-2.4) mg/dL Total Bilirubin (0.2-1.0) mg/dL AST (15-37) U/L ALT (16-63) U/L Alkaline Phosphatase (46-116) U/L Troponin I (<=0.056) ng/mL C-Reactive Protein (<=0.9) mg/dL Total Protein (6.4-8.2) g/dL Albumin (3.4-5.0) g/dL Globulin Albumin/Globulin Ratio TSH, Ultra Sensitive (0.358-3.74) uIU/mL Urine Color Dark yellow H (YELLOW) Urine Appearance Cloudy H (CLEAR) Urine pH 5.5 (5.0-8.0) Ur Specific Archer 1.020 Urine Protein 30 H (NEGATIVE) mg/dL Urine Glucose (UA) Negative (NEGATIVE) mg/dL Urine Ketones Negative (NEGATIVE) mg/dL Urine Occult Blood Moderate H (NEGATIVE) Urine Nitrite Positive H (NEGATIVE) Urine Bilirubin Small H (NEGATIVE) Urine Urobilinogen 1.0 (0.2) EU/dL Ur Leukocyte Esterase Small H (NEGATIVE) Urine RBC 10-20 H (NOT SEEN) /HPF Urine WBC 5-10 H (NOT SEEN) /HPF Ur Squamous Epith Cells Rare (NEGATIVE) /HPF Urine Bacteria Moderate H (NEGATIVE) /HPF Urine Mucus Few H (NEGATIVE) /LPF 12/16/19 12/16/19 Range/Units 17:07 17:07 WBC (4.0-10.0) x10^3/uL RBC (4.5-6.0) x10^6/uL Hgb (14.0-18.0) g/dL Hct (40.0-52.0) % MCV (78.0-93.0) fL MCH (26.0-32.0) pg MCHC (32.0-36.0) g/dL RDW Coeff of Ansley (10.0-15.0) % Plt Count (130-400) x10^3/uL Neut % (Auto) (50.0-80.0) % Lymph % (Auto) (25.0-50.0) % Slope % (Auto) (2.0-11.0) % Eos % (Auto) (0.0-4.0) % Baso % (Auto) (0.2-1.2) % PT (10.0-12.8) SEC INR (2.0-3.5) Sodium 140 (136-145) mmol/L Potassium 3.8 (3.5-5.1) mmol/L Chloride 104 (98-107) mmol/L Carbon Dioxide 26 (21-32) mmol/L Anion Gap 13.8 (10-20) mmol/L BUN 10 (7-18) mg/dL Creatinine 0.9 (0.70-1.30) mg/dL Est Cr Clr Drug Dosing TNP Estimated GFR (MDRD) > 60 Glucose 102 (74-106) mg/dL Lactic Acid 1.9 (0.4-2.0) mmol/L Calcium 8.7 (8.5-10.1) mg/dL Corrected Calcium 9.82 (8.5-10.1) mg/dL Phosphorus 2.4 L (2.6-4.7) mg/dL Magnesium 1.1 L (1.8-2.4) mg/dL Total Bilirubin 0.6 (0.2-1.0) mg/dL AST 61 H (15-37) U/L ALT 50 (16-63) U/L Alkaline Phosphatase 320 H (46-116) U/L Troponin I 0.209 H* (<=0.056) ng/mL C-Reactive Protein 3.0 H (<=0.9) mg/dL Total Protein 5.9 L (6.4-8.2) g/dL Albumin 2.6 L (3.4-5.0) g/dL Globulin 3.3 Albumin/Globulin Ratio 0.79 TSH, Ultra Sensitive 0.435 (0.358-3.74) uIU/mL Urine Color (YELLOW) Urine Appearance (CLEAR) Urine pH (5.0-8.0) Ur Specific Archer Urine Protein (NEGATIVE) mg/dL Urine Glucose (UA) (NEGATIVE) mg/dL Urine Ketones (NEGATIVE) mg/dL Urine Occult Blood (NEGATIVE) Urine Nitrite (NEGATIVE) Urine Bilirubin (NEGATIVE) Urine Urobilinogen (0.2) EU/dL Ur Leukocyte Esterase (NEGATIVE) Urine RBC (NOT SEEN) /HPF Urine WBC (NOT SEEN) /HPF Ur Squamous Epith Cells (NEGATIVE) /HPF Urine Bacteria (NEGATIVE) /HPF Urine Mucus (NEGATIVE) /LPF Result Diagrams: 12/16/19 17:07 12/16/19 17:07 Joseph Results Last 24 hrs: Microbiology 12/16/19 17:05 Influenza Type A Antigen Screen - Final Nasal, Unspecified NEGATIVE INFLUENZA A VIRUS AG REFERENCE RANGE: NEGATIVE Influenza Type B Antigen Screen - Final NEGATIVE INFLUENZA B VIRUS AG REFERENCE RANGE: NEGATIVE Sepsis Event Note - Evaluation Sepsis Screening Result: No Definite Risk - Focused Exam Vital Signs: Vital Signs Temp Pulse Resp BP Pulse Ox 12/16/19 18:22 101 H 134/75 96 12/16/19 18:08 39.3 C H 108 H 20 126/73 97 12/16/19 16:41 38.9 C H 106 H 20 122/71 96 Date Exam was Performed: 12/16/19 Time Exam was Performed: 20:10 *Q Meaningful Use (ADM) - VTE *Q VTE Anticoagulation Contraindications: Medical/Procedure Contrai - Problem List (1) Sepsis SNOMED Code(s): 65792274 ICD Code: A41.9 - SEPSIS, UNSPECIFIED ORGANISM Status: Acute Current Visit: Yes Qualifiers: Sepsis type: sepsis due to unspecified organism Sepsis acute organ dysfunction status: without acute organ dysfunction Qualified Code(s): A41.9 - Sepsis, unspecified organism (2) UTI (urinary tract infection) SNOMED Code(s): 68468690 ICD Code: N39.0 - URINARY TRACT INFECTION, SITE NOT SPECIFIED Status: Acute Current Visit: Yes Qualifiers: Urinary tract infection type: site unspecified Hematuria presence: without hematuria Qualified Code(s): N39.0 - Urinary tract infection, site not specified (3) Neutropenic fever SNOMED Code(s): 526837945 ICD Code: D70.9 - NEUTROPENIA, UNSPECIFIED; R50.81 - FEVER PRESENTING WITH CONDITIONS CLASSIFIED ELSEWHERE Status: Acute Current Visit: Yes (4) Antineoplastic chemotherapy induced pancytopenia SNOMED Code(s): 301172078768060 ICD Code: D61.810 - ANTINEOPLASTIC CHEMOTHERAPY INDUCED PANCYTOPENIA; T45.1X5A - ADVERSE EFFECT OF ANTINEOPLASTIC AND IMMUNOSUP DRUGS, INIT Status: Chronic Current Visit: Yes (5) CAD (coronary artery disease) SNOMED Code(s): 21249527 ICD Code: I25.10 - ATHSCL HEART DISEASE OF [place] CORONARY ARTERY W/O ANG PCTRS Status: Chronic Current Visit: Yes (6) Elevated troponin SNOMED Code(s): 313894275, 533300422, 875177139 ICD Code: R79.89 - OTHER SPECIFIED ABNORMAL FINDINGS OF BLOOD CHEMISTRY Status: Acute Current Visit: Yes (7) A-fib SNOMED Code(s): 21579533 ICD Code: I48.91 - UNSPECIFIED ATRIAL FIBRILLATION Status: Chronic Current Visit: No (8) Atrial flutter SNOMED Code(s): 5414959 ICD Code: I48.92 - UNSPECIFIED ATRIAL FLUTTER Status: Chronic Current Visit: No (9) Celiac disease SNOMED Code(s): 965549211 ICD Code: K90.0 - CELIAC DISEASE Status: Chronic Current Visit: No (10) Esophageal reflux SNOMED Code(s): 012955357 ICD Code: K21.9 - GASTRO-ESOPHAGEAL REFLUX DISEASE WITHOUT ESOPHAGITIS Status: Chronic Current Visit: No (11) Gout SNOMED Code(s): 43991316 ICD Code: M10.9 - GOUT, UNSPECIFIED Status: Chronic Current Visit: No Qualifiers: Gout site: multiple sites Gout etiology: idiopathic Chronicity: chronic Presence of tophus: without tophus Qualified Code(s): M1A.09X0 - Idiopathic chronic gout, multiple sites, without tophus (tophi) (12) Hyperlipidemia SNOMED Code(s): 17143358 ICD Code: E78.5 - HYPERLIPIDEMIA, UNSPECIFIED Status: Chronic Current Visit: No Qualifiers: Hyperlipidemia type: mixed hyperlipidemia Qualified Code(s): E78.2 - Mixed hyperlipidemia (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 SNOMED Code(s): 460984296 ICD Code: C49.22 - MALIG NEOPLM OF CONN AND SOFT TISS OF LEFT LOW LIMB, INC HIP Status: Chronic Current Visit: No (14) Parkinson disease SNOMED Code(s): 86248808 ICD Code: G20 - PARKINSON'S DISEASE Status: Chronic Current Visit: No Problem List Initiated/Reviewed/Updated: Yes Orders Last 24hrs: Active Orders 24 hr Category Date Time Status Patient Status [ADT] Routine ADT 12/16/19 18:08 Active Dietary Supplements [RC] BIDMEALS Care 12/16/19 20:04 Ordered Notify Provider Vital Signs [RC] ASDIRECTED Care 12/16/19 19:59 Ordered Oxygen Therapy [RC] PRN Care 12/16/19 19:59 Ordered Up With Assistance [RC] ASDIRECTED Care 12/16/19 19:59 Ordered VTE/DVT Education [RC] PER UNIT ROUTINE Care 12/16/19 19:59 Ordered Vital Signs [RC] Q4H Care 12/16/19 19:59 Ordered Regular Diet [DIET] Diet 12/16/19 Breakfast Ordered BASIC METABOLIC PANEL,BMP [CHEM] Routine Lab 12/17/19 05:11 Ordered CBC WITH AUTO DIFF [HEME] Routine Lab 12/17/19 05:11 Ordered CULTURE BLOOD [BC] Stat Lab 12/16/19 17:07 Received CULTURE BLOOD [BC] Stat Lab 12/16/19 17:13 Received CULTURE URINE [RM] Routine Lab 12/16/19 19:57 Ordered TROPONIN I [CHEM] Routine Lab 12/16/19 21:00 Ordered Acetaminophen [Tylenol] Med 12/16/19 19:59 Ordered 650 mg PO Q4H PRN Aspirin Med 12/17/19 08:00 Ordered 81 mg PO DAILY Carbidopa/Levodopa [Sinemet 25-100 mg] Med 12/16/19 20:06 Ordered 1.5 each PO TID Flecainide [Tambocor] Med 12/16/19 20:15 Ordered 50 mg PO Q12H Lansoprazole [Prevacid] Med 12/17/19 08:00 Ordered 15 mg PO DAILY Metoprolol Succinate [Toprol XL 100mg] Med 12/17/19 08:00 Ordered 50 mg PO DAILY Ondansetron Med 12/16/19 20:04 Ordered 8 mg PO Q8H PRN Piperacillin/Tazobactam [Zosyn] 4.5 gm Med 12/16/19 23:59 Ordered Sodium Chloride 0.9% [Normal Saline] 100 ml IV Q6H Prochlorperazine Maleate [Compazine] Med 12/16/19 20:04 Ordered 10 mg PO QID PRN Simvastatin [Zocor] Med 12/17/19 20:00 Ordered 10 mg PO BEDTIME Sodium Chloride 0.65% [Saks Nasal Stuart] Med 12/16/19 20:04 Ordered 2 sprays NASBOTH Q2HR PRN Sodium Chloride 0.9% [Normal Saline] 1,000 ml Med 12/16/19 20:00 Ordered IV ASDIRECTED Sodium Chloride 0.9% [Saline Flush] Med 12/16/19 16:44 Active 10 ml FLUSH ASDIRECTED PRN allopurinoL [Zyloprim] Med 12/17/19 08:00 Ordered 150 mg PO DAILY Anticoagulation Contraindications VTE [AST] Per Unit Oth 12/16/19 19:59 Ordered Routine Blood Culture x2 Reflex Set [OM.PC] Stat Oth 12/16/19 16:48 Ordered Peripheral IV Insertion Adult [OM.PC] Routine Oth 12/16/19 16:48 Ordered Resuscitation Status Routine Resus Stat 12/16/19 19:59 Ordered Medication Orders Acetaminophen (Tylenol) 650 mg PO Q4H PRN PRN Reason: Pain (Mild 1-3)/fever Allopurinol (Zyloprim) 150 mg PO DAILY IJEOMA Aspirin (Aspirin) 81 mg PO DAILY IJEOMA Sodium Chloride (Normal Saline) 1,000 mls @ 75 mls/hr IV ASDIRECTED IJEOMA Piperacillin Sod/Tazobactam (Sod 4.5 gm/ Sodium Chloride) 100 mls @ 200 mls/hr IV Q6H IJEOMA Sodium Chloride (Saline Flush) 10 ml FLUSH ASDIRECTED PRN PRN Reason: Keep Vein Open Assessment/Plan Comment:: 74 yo male admitted with sepsis and neutropenic fever secondary to UTI after presenting to the ER for evaluation of generalized weakness after a fall at home. #1 Sepsis, secondary to #2 #2 UTI #3 Neutropenic fever #4 Chemotherapy induced pancytopenia #5 Liposarcoma - Meets sepsis criteria with tachycardia and fever. - WBC still low but up from yesterday. - U/A positive and patient also has symptoms of a UTI. - No other s/s of a focal infection. CXR without evidence of pneumonia. Influenza negative. - Blood cultures pending. - Urine culture also ordered. - Patient got vancomycin and zosyn in the ER. Will continue zosyn only given source is UTI. - Tylenol PRN fever. - Initial lactate normal; therefore, will not repeat. - Given recent concerns for cardiotoxicity for his chemotherapy, will give slow IV fluids overnight and monitor for fluid overload. Will also hold lasix. #6 CAD, mild #7 Elevated troponin #8 Atrial fibrillation #9 Atrial flutter - EKG with new abnormalities. ER provider did fax to [place] and reviewed this with cardiology. They recommend trending his troponin and no other intervention at this time. - Will repeat his troponin this evening. If stable, will not repeat again as any event would have happened yesterday or earlier today when his weakness started. - Continue home medications with the exception of his lasix. #10 Celiac Disease #11 GERD #12 Gout #13 Hyperlipidemia #14 Parkinson's Disease - Continue home medications. Patient will be admitted to acute given anticipation he will need at least 48 hours of IV antibiotics with his admission spanning >2 midnights. IV fluids and antibiotics as above. Blood and urine cultures pending. Continue home medications apart from bowel regimen, vitamins, and lasix. Patient wishes to be full code - discussed on admission. No pharmacologic VTE prophylaxis at this time given thrombocytopenia.
[2019-12-16] MEDS: Sodium Chloride 0.9% 1,000 ML IV SCH (20:24)
[2019-12-16] MEDS ORDERED: Ondansetron 4 MG Tab.DIS PO PRN (20:30)
[2019-12-16] MEDS: Simvastatin 10 MG Tab PO SCH (20:38)
[2019-12-16] MEDS: Prochlorperazine 5 MG Tab PO PRN (20:38)
[2019-12-16] MEDS: Carbidopa/Levodopa 25-100 MG Tab PO SCH (20:38)
[2019-12-16] MEDS: Flecainide 50 MG Tab PO SCH (20:38)
--- NOTE | 2019-12-16 21:44 | PCM.SN ---
- Free Text/Narrative Note: Troponin up slightly from previous. Patient does not have symptoms for any ACS and also has severe thrombocytopenia. Therefore, will hold off on further intervention (as in heparin) at this time. Will recheck troponin again tomorrow am.
[2019-12-16] MEDS: Piperacillin/Tazobactam 3.375 GM in Sodium Chloride 0.9% 100 ML IV SCH (22:57)
[2019-12-17] MEDS: Acetaminophen 325 MG Tab PO PRN ×2 (03:43→16:02)
[2019-12-17] MEDS: Piperacillin/Tazobactam 3.375 GM in Sodium Chloride 0.9% 100 ML IV SCH ×3 (05:21→17:31)
[2019-12-17] MEDS: Omeprazole 20 MG Cap.CR PO SCH (06:37)
[2019-12-17 08:22] LABS: ANION GAP 12.5 mmol/L (10-20); CHLORIDE,CL 106 mmol/L (98-107); SODIUM,NA 139 mmol/L (136-145)
[2019-12-17] MEDS: Carbidopa/Levodopa 25-100 MG Tab PO SCH ×3 (08:50→20:35)
[2019-12-17] MEDS: Allopurinol 300 MG Tab PO SCH (08:51)
[2019-12-17] MEDS: Flecainide 50 MG Tab PO SCH ×2 (08:51→20:37)
[2019-12-17] MEDS: Metoprolol Succinate 50 MG Tab.ER PO SCH (08:52)
[2019-12-17] MEDS: Aspirin 81 MG Tab.Chew PO SCH (08:52)
[2019-12-17] MEDS: Sodium Chloride 0.9% 1,000 ML IV SCH (08:53)
--- NOTE | 2019-12-17 10:26 | PCM.PN ---
- General Info Date of Service: 12/17/19 Subjective Update: 74 yo male hospital day #2 admitted with sepsis secondary to UTI in the setting of chemotherapy induced neutropenia. He states he feels "ok" today apart from significant weakness. He did not sleep well last night as he is bothered by the fact that he is too weak to reposition himself. He still does have some dysuria and yellow coloration to the urine. He had a fever overnight that came down with tylenol. No abdominal pain. No shortness of breath. - Review of Systems General: Reports: Fever, Weakness HEENT: Reports: No Symptoms Pulmonary: Reports: No Symptoms Cardiovascular: Reports: No Symptoms Gastrointestinal: Reports: No Symptoms Genitourinary: Reports: Dysuria Musculoskeletal: Reports: No Symptoms Skin: Reports: No Symptoms Neurological: Reports: No Symptoms - Patient Data Vitals - Most Recent: Last Vital Signs Temp 36.3 C 12/17/19 09:23 Pulse 98 12/17/19 09:23 Resp 18 12/17/19 09:23 BP 120/78 12/17/19 09:23 Pulse Ox 97 12/17/19 09:23 Weight - Most Recent: 79.016 kg I&O - Last 24 Hours: Intake & Output 12/16/19 12/17/19 12/17/19 22:59 06:59 14:59 Intake Total 200 120 Output Total 200 300 Balance -200 -100 120 Lab Results Last 24 Hours: Laboratory Results - last 24 hr 12/16/19 12/16/19 12/16/19 Range/Units 17:05 17:07 17:07 WBC 4.5 (4.0-10.0) x10^3/uL RBC 2.43 L (4.5-6.0) x10^6/uL Hgb 8.6 L (14.0-18.0) g/dL Hct 25.4 L (40.0-52.0) % MCV 104.5 H D (78.0-93.0) fL MCH 35.4 H (26.0-32.0) pg MCHC 33.9 (32.0-36.0) g/dL RDW Coeff of [place] 14.8 (10.0-15.0) % Plt Count 45 L* (130-400) x10^3/uL Neut % (Auto) 60.2 (50.0-80.0) % Lymph % (Auto) 24.1 L (25.0-50.0) % [place] % (Auto) 15.5 H (2.0-11.0) % Eos % (Auto) 0.0 (0.0-4.0) % Baso % (Auto) 0.2 (0.2-1.2) % PT 11.3 (10.0-12.8) SEC INR 1.0 L (2.0-3.5) Sodium (136-145) mmol/L Potassium (3.5-5.1) mmol/L Chloride (98-107) mmol/L Carbon Dioxide (21-32) mmol/L Anion Gap (10-20) mmol/L BUN (7-18) mg/dL Creatinine (0.70-1.30) mg/dL Est Cr Clr Drug Dosing Estimated GFR (MDRD) Glucose (74-106) mg/dL Lactic Acid (0.4-2.0) mmol/L Calcium (8.5-10.1) mg/dL Corrected Calcium (8.5-10.1) mg/dL Phosphorus (2.6-4.7) mg/dL Magnesium (1.8-2.4) mg/dL Total Bilirubin (0.2-1.0) mg/dL AST (15-37) U/L ALT (16-63) U/L Alkaline Phosphatase (46-116) U/L Troponin I (<=0.056) ng/mL C-Reactive Protein (<=0.9) mg/dL Total Protein (6.4-8.2) g/dL Albumin (3.4-5.0) g/dL Globulin Albumin/Globulin Ratio TSH, Ultra Sensitive (0.358-3.74) uIU/mL Urine Color Dark yellow H (YELLOW) Urine Appearance Cloudy H (CLEAR) Urine pH 5.5 (5.0-8.0) Ur Specific [place] 1.020 Urine Protein 30 H (NEGATIVE) mg/dL Urine Glucose (UA) Negative (NEGATIVE) mg/dL Urine Ketones Negative (NEGATIVE) mg/dL Urine Occult Blood Moderate H (NEGATIVE) Urine Nitrite Positive H (NEGATIVE) Urine Bilirubin Small H (NEGATIVE) Urine Urobilinogen 1.0 (0.2) EU/dL Ur Leukocyte Esterase Small H (NEGATIVE) Urine RBC 10-20 H (NOT SEEN) /HPF Urine WBC 5-10 H (NOT SEEN) /HPF Ur Squamous Epith Cells Rare (NEGATIVE) /HPF Urine Bacteria Moderate H (NEGATIVE) /HPF Urine Mucus Few H (NEGATIVE) /LPF 12/16/19 12/16/19 12/16/19 Range/Units 17:07 17:07 20:59 WBC (4.0-10.0) x10^3/uL RBC (4.5-6.0) x10^6/uL Hgb (14.0-18.0) g/dL Hct (40.0-52.0) % MCV (78.0-93.0) fL MCH (26.0-32.0) pg MCHC (32.0-36.0) g/dL RDW Coeff of [place] (10.0-15.0) % Plt Count (130-400) x10^3/uL Neut % (Auto) (50.0-80.0) % Lymph % (Auto) (25.0-50.0) % [place] % (Auto) (2.0-11.0) % Eos % (Auto) (0.0-4.0) % Baso % (Auto) (0.2-1.2) % PT (10.0-12.8) SEC INR (2.0-3.5) Sodium 140 (136-145) mmol/L Potassium 3.8 (3.5-5.1) mmol/L Chloride 104 (98-107) mmol/L Carbon Dioxide 26 (21-32) mmol/L Anion Gap 13.8 (10-20) mmol/L BUN 10 (7-18) mg/dL Creatinine 0.9 (0.70-1.30) mg/dL Est Cr Clr Drug Dosing TNP Estimated GFR (MDRD) > 60 Glucose 102 (74-106) mg/dL Lactic Acid 1.9 (0.4-2.0) mmol/L Calcium 8.7 (8.5-10.1) mg/dL Corrected Calcium 9.82 (8.5-10.1) mg/dL Phosphorus 2.4 L (2.6-4.7) mg/dL Magnesium 1.1 L (1.8-2.4) mg/dL Total Bilirubin 0.6 (0.2-1.0) mg/dL AST 61 H (15-37) U/L ALT 50 (16-63) U/L Alkaline Phosphatase 320 H (46-116) U/L Troponin I 0.209 H* 0.253 H* (<=0.056) ng/mL C-Reactive Protein 3.0 H (<=0.9) mg/dL Total Protein 5.9 L (6.4-8.2) g/dL Albumin 2.6 L (3.4-5.0) g/dL Globulin 3.3 Albumin/Globulin Ratio 0.79 TSH, Ultra Sensitive 0.435 (0.358-3.74) uIU/mL Urine Color (YELLOW) Urine Appearance (CLEAR) Urine pH (5.0-8.0) Ur Specific [place] Urine Protein (NEGATIVE) mg/dL Urine Glucose (UA) (NEGATIVE) mg/dL Urine Ketones (NEGATIVE) mg/dL Urine Occult Blood (NEGATIVE) Urine Nitrite (NEGATIVE) Urine Bilirubin (NEGATIVE) Urine Urobilinogen (0.2) EU/dL Ur Leukocyte Esterase (NEGATIVE) Urine RBC (NOT SEEN) /HPF Urine WBC (NOT SEEN) /HPF Ur Squamous Epith Cells (NEGATIVE) /HPF Urine Bacteria (NEGATIVE) /HPF Urine Mucus (NEGATIVE) /LPF 12/17/19 12/17/19 Range/Units 07:41 07:41 WBC 4.6 (4.0-10.0) x10^3/uL RBC 2.06 L (4.5-6.0) x10^6/uL Hgb 7.3 L (14.0-18.0) g/dL Hct 21.5 L (40.0-52.0) % MCV 104.4 H (78.0-93.0) fL MCH 35.4 H (26.0-32.0) pg MCHC 34.0 (32.0-36.0) g/dL RDW Coeff of [place] 15.0 (10.0-15.0) % Plt Count 36 L* (130-400) x10^3/uL Neut % (Auto) 61.6 (50.0-80.0) % Lymph % (Auto) 20.0 L (25.0-50.0) % [place] % (Auto) 18.2 H (2.0-11.0) % Eos % (Auto) 0.0 (0.0-4.0) % Baso % (Auto) 0.2 (0.2-1.2) % PT (10.0-12.8) SEC INR (2.0-3.5) Sodium 139 (136-145) mmol/L Potassium 3.5 (3.5-5.1) mmol/L Chloride 106 (98-107) mmol/L Carbon Dioxide 24 (21-32) mmol/L Anion Gap 12.5 (10-20) mmol/L BUN 11 (7-18) mg/dL Creatinine 1.0 (0.70-1.30) mg/dL Est Cr Clr Drug Dosing 68.94 Estimated GFR (MDRD) > 60 Glucose 107 H (74-106) mg/dL Lactic Acid (0.4-2.0) mmol/L Calcium 7.8 L (8.5-10.1) mg/dL Corrected Calcium (8.5-10.1) mg/dL Phosphorus (2.6-4.7) mg/dL Magnesium (1.8-2.4) mg/dL Total Bilirubin (0.2-1.0) mg/dL AST (15-37) U/L ALT (16-63) U/L Alkaline Phosphatase (46-116) U/L Troponin I 0.223 H* (<=0.056) ng/mL C-Reactive Protein (<=0.9) mg/dL Total Protein (6.4-8.2) g/dL Albumin (3.4-5.0) g/dL Globulin Albumin/Globulin Ratio TSH, Ultra Sensitive (0.358-3.74) uIU/mL Urine Color (YELLOW) Urine Appearance (CLEAR) Urine pH (5.0-8.0) Ur Specific [place] Urine Protein (NEGATIVE) mg/dL Urine Glucose (UA) (NEGATIVE) mg/dL Urine Ketones (NEGATIVE) mg/dL Urine Occult Blood (NEGATIVE) Urine Nitrite (NEGATIVE) Urine Bilirubin (NEGATIVE) Urine Urobilinogen (0.2) EU/dL Ur Leukocyte Esterase (NEGATIVE) Urine RBC (NOT SEEN) /HPF Urine WBC (NOT SEEN) /HPF Ur Squamous Epith Cells (NEGATIVE) /HPF Urine Bacteria (NEGATIVE) /HPF Urine Mucus (NEGATIVE) /LPF Joseph Results Last 24 Hours: Microbiology 12/16/19 17:05 Urine Culture - Preliminary Urine, Clean Catch Gram Negative Rods 12/16/19 17:05 Influenza Type A Antigen Screen - Final Nasal, Unspecified NEGATIVE INFLUENZA A VIRUS AG REFERENCE RANGE: NEGATIVE Influenza Type B Antigen Screen - Final NEGATIVE INFLUENZA B VIRUS AG REFERENCE RANGE: NEGATIVE Med Orders - Current: Current Medications Acetaminophen (Tylenol) 650 mg PO Q4H PRN PRN Reason: Pain (Mild 1-3)/fever Last Admin: 12/17/19 03:43 Dose: 650 mg Allopurinol (Zyloprim) 150 mg PO DAILY [facility] Last Admin: 12/17/19 08:51 Dose: 150 mg Aspirin (Aspirin) 81 mg PO DAILY [facility] Last Admin: 12/17/19 08:52 Dose: 81 mg Carbidopa/Levodopa (Sinemet 25-100 Mg) 1.5 tab PO TID [facility] Last Admin: 12/17/19 08:50 Dose: 1.5 tab Flecainide Acetate (Tambocor) 50 mg PO Q12HR [facility] Last Admin: 12/17/19 08:51 Dose: 50 mg Piperacillin Sod/Tazobactam (Sod 3.375 gm/ Sodium Chloride) 100 mls @ 200 mls/ hr IV Q6H [facility] Last Admin: 12/17/19 05:21 Dose: 200 mls/hr Metoprolol Succinate (Toprol Xl) 50 mg PO DAILY [facility] Last Admin: 12/17/19 08:52 Dose: 50 mg Omeprazole (Omeprazole) 20 mg PO DAILY@0700 [facility] Last Admin: 12/17/19 06:37 Dose: 20 mg Ondansetron HCl (Zofran Odt) 8 mg PO Q8H PRN PRN Reason: NAUSEA Prochlorperazine Maleate (Compazine) 10 mg PO QID PRN PRN Reason: VOMITING Last Admin: 12/16/19 20:38 Dose: 10 mg Simvastatin (Zocor) 10 mg PO BEDTIME [facility] Last Admin: 12/16/19 20:38 Dose: 10 mg Sodium Chloride (Saline Flush) 10 ml FLUSH ASDIRECTED PRN PRN Reason: Keep Vein Open Last Admin: 12/16/19 22:57 Dose: 10 ml Sodium Chloride ([place] Nasal [place]) 0 ml NASBOTH Q2H PRN PRN Reason: Congestion Discontinued Medications Acetaminophen (Tylenol Extra Strength) 1,000 mg PO ONETIME ONE Stop: 12/16/19 18:19 Last Admin: 12/16/19 18:38 Dose: 1,000 mg Piperacillin Sod/Tazobactam (Sod 4.5 gm/ Sodium Chloride) 100 mls @ 200 mls/hr IV STAT ONE Stop: 12/16/19 17:35 Last Admin: 12/16/19 17:28 Dose: 200 mls/hr Vancomycin HCl 1.5 gm/ Sodium (Chloride) 250 mls @ 165 mls/hr IV STAT ONE Stop: 12/16/19 18:47 Last Admin: 12/16/19 18:04 Dose: 165 mls/hr Sodium Chloride (Normal Saline) 1,000 mls @ 500 mls/hr IV ASDIRECTED IJEOMA Sodium Chloride (Normal Saline) 1,000 mls @ 75 mls/hr IV ASDIRECTED IJEOMA Last Admin: 12/17/19 08:53 Dose: 75 mls/hr Iopamidol (Isovue-300 (61%)) 100 ml IVPUSH ONETIME ONE Stop: 12/16/19 18:19 Last Admin: 12/16/19 18:42 Dose: 100 ml - Exam General: Alert, Oriented, Cooperative, No Acute Distress HEENT: Mucous Membr. Moist/[place] Neck: Supple, Trachea Midline, No Thyromegaly. No: Lymphadenopathy Lungs: Clear to Auscultation, Normal Respiratory Effort Cardiovascular: Regular Rate, Regular Rhythm, No Murmurs GI/Abdominal Exam: Normal Bowel Sounds, Soft, Non-Tender, No Organomegaly, No Distention, No Mass Extremities: Non-Tender, Normal Capillary Refill, Pedal Edema (trace right pedal edema) Peripheral Pulses: 2+: Radial (L), Radial (R) Skin: Warm, Dry, Intact Sepsis Event Note - Evaluation Sepsis Screening Result: Severe Sepsis Risk - Focused Exam Vital Signs: Vital Signs Temp Temp Temp Pulse Pulse Resp BP 12/17/19 09:23 36.3 C 98 18 12/17/19 08:52 76 126/76 12/17/19 05:07 37.5 C 65 18 12/17/19 04:13 36.3 C 12/17/19 01:36 36.5 C 106 H 18 BP Pulse Ox 12/17/19 09:23 120/78 97 12/17/19 08:52 12/17/19 05:07 103/42 L 93 L 12/17/19 04:13 12/17/19 01:36 126/76 96 Date Exam was Performed: 12/17/19 Time Exam was Performed: 10:19 - Problem List & Annotations (1) Sepsis SNOMED Code(s): 46416110 Code(s): A41.9 - SEPSIS, UNSPECIFIED ORGANISM Status: Acute Current Visit : Yes Qualifiers: Sepsis type: sepsis due to unspecified organism Sepsis acute organ dysfunction status: without acute organ dysfunction Qualified Code(s): A41.9 - Sepsis, unspecified organism (2) UTI (urinary tract infection) SNOMED Code(s): 60209593 Code(s): N39.0 - URINARY TRACT INFECTION, SITE NOT SPECIFIED Status: Acute Current Visit: Yes Qualifiers: Urinary tract infection type: site unspecified Hematuria presence: without hematuria Qualified Code(s): N39.0 - Urinary tract infection, site not specified (3) Neutropenic fever SNOMED Code(s): 178524363 Code(s): D70.9 - NEUTROPENIA, UNSPECIFIED; R50.81 - FEVER PRESENTING WITH CONDITIONS CLASSIFIED ELSEWHERE Status: Acute Current Visit: Yes (4) Antineoplastic chemotherapy induced pancytopenia SNOMED Code(s): 260458384204531 Code(s): D61.810 - ANTINEOPLASTIC CHEMOTHERAPY INDUCED PANCYTOPENIA; T45.1X5A - ADVERSE EFFECT OF ANTINEOPLASTIC AND IMMUNOSUP DRUGS, INIT Status: Chronic Current Visit: Yes (5) CAD (coronary artery disease) SNOMED Code(s): 40256834 Code(s): I25.10 - ATHSCL HEART DISEASE OF [place] CORONARY ARTERY W/O ANG PCTRS Status: Chronic Current Visit: Yes (6) Elevated troponin SNOMED Code(s): 431305471, 753902500, 880341268 Code(s): R79.89 - OTHER SPECIFIED ABNORMAL FINDINGS OF BLOOD CHEMISTRY Status: Acute Current Visit: Yes (7) A-fib SNOMED Code(s): 77253599 Code(s): I48.91 - UNSPECIFIED ATRIAL FIBRILLATION Status: Chronic Current Visit: No (8) Atrial flutter SNOMED Code(s): 8074795 Code(s): I48.92 - UNSPECIFIED ATRIAL FLUTTER Status: Chronic Current Visit: No (9) Celiac disease SNOMED Code(s): 115269249 Code(s): K90.0 - CELIAC DISEASE Status: Chronic Current Visit: No (10) Esophageal reflux SNOMED Code(s): 855838274 Code(s): K21.9 - GASTRO-ESOPHAGEAL REFLUX DISEASE WITHOUT ESOPHAGITIS Status: Chronic Current Visit: No (11) Gout SNOMED Code(s): 93262807 Code(s): M10.9 - GOUT, UNSPECIFIED Status: Chronic Current Visit: No Qualifiers: Gout site: multiple sites Gout etiology: idiopathic Chronicity: chronic Presence of tophus: without tophus Qualified Code(s): M1A.09X0 - Idiopathic chronic gout, multiple sites, without tophus (tophi) (12) Hyperlipidemia SNOMED Code(s): 77239316 Code(s): E78.5 - HYPERLIPIDEMIA, UNSPECIFIED Status: Chronic Current Visit: No Qualifiers: Hyperlipidemia type: mixed hyperlipidemia Qualified Code(s): E78.2 - Mixed hyperlipidemia (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 SNOMED Code(s): 357127032 Code(s): C49.22 - MALIG NEOPLM OF CONN AND SOFT TISS OF LEFT LOW LIMB, INC HIP Status: Chronic Current Visit: No (14) Parkinson disease SNOMED Code(s): 09419872 Code(s): G20 - PARKINSON'S DISEASE Status: Chronic Current Visit: No - Problem List Review Problem List Initiated/Reviewed/Updated: Yes - My Orders Last 24 Hours: My Active Orders 12/16/19 17:05 CULTURE URINE [RM] Routine 12/16/19 19:59 Notify Provider Vital Signs [RC] ASDIRECTED Oxygen Therapy [RC] PRN Up With Assistance [RC] , VTE/DVT Education [RC] PER UNIT ROUTINE Vital Signs [RC] 06,10,14,18,22,02 Acetaminophen [Tylenol] 650 mg PO Q4H PRN Anticoagulation Contraindications VTE [AST] Per Unit Routine Resuscitation Status Routine 12/16/19 20:00 Simvastatin [Zocor] 10 mg PO BEDTIME 12/16/19 20:04 Dietary Supplements [RC] 0930,5780 Sodium Chloride 0.65% [[place] Nasal [place]] 0 ml NASBOTH Q2H PRN 12/16/19 20:06 Carbidopa/Levodopa [Sinemet 25-100 mg] 1.5 tab PO TID 12/16/19 20:15 Flecainide [Tambocor] 50 mg PO Q12HR 12/16/19 20:30 Ondansetron [Zofran ODT] 8 mg PO Q8H PRN Prochlorperazine [Compazine] 10 mg PO QID PRN 12/16/19 23:30 Piperacillin/Tazobactam [Zosyn] 3.375 gm Sodium Chloride 0.9% [Normal Saline] 100 ml IV Q6H 12/17/19 07:00 Omeprazole 20 mg PO DAILY@0700 12/17/19 08:00 Aspirin 81 mg PO DAILY Metoprolol Succinate [Toprol XL] 50 mg PO DAILY allopurinoL [Zyloprim] 150 mg PO DAILY - Assessment Assessment:: 74 yo male hospital day #2 admitted with sepsis secondary to UTI in the setting of chemotherapy induced neutropenia. Labs are stable today. He is not feeling much different but has only been on antibiotics for just over 12 hours. - Plan Plan:: #1 Sepsis, secondary to #2, resolved #2 UTI #3 Neutropenic fever #4 Chemotherapy induced pancytopenia #5 Liposarcoma - Met sepsis criteria on admission with tachycardia and fever. No longer meeting sepsis criteria now that heart rate is normal. - WBC stable. - Urine culture growing gram negative rods. - Blood cultures pending. - Continue zosyn. Will plan to transition to oral antibiotics once susceptibilities available and >24 hours without fever. - Tylenol PRN fever. - Since HR is normal, will d/c IV fluids for now. He can drink fluids today ad avelino. Will reassess later whether he needs IV fluids again overnight. #6 CAD, mild #7 Elevated troponin #8 Atrial fibrillation #9 Atrial flutter - EKG with new abnormalities. ER provider did fax to [place] and reviewed this with cardiology. They recommend trending his troponin and no other intervention at this time. - Troponins have been stable. - Therefore, elevation is unlikely to represent ACS. - Will not trend further. - He has an echo planned for this week. - Continue home medications with the exception of his lasix. #10 Celiac Disease #11 GERD #12 Gout #13 Hyperlipidemia #14 Parkinson's Disease - Continue home medications. Patient will be remain on acute today - anticipate he will likely be on acute until Thursday as we await susceptibilities on his urine cultures. He may need a swing bed stay to regain some strength prior to returning home but that will depend on how quickly he recovers once he has been on the antibiotics for longer. Details under problems as above. Continue home medications apart from bowel regimen, vitamins, and lasix. Patient wishes to be full code - discussed on admission. No pharmacologic VTE prophylaxis at this time given thrombocytopenia.
[2019-12-17] MEDS: Prochlorperazine 5 MG Tab PO PRN (17:45)
[2019-12-17] MEDS: Simvastatin 10 MG Tab PO SCH (20:36)
[2019-12-18] MEDS: Piperacillin/Tazobactam 3.375 GM in Sodium Chloride 0.9% 100 ML IV SCH ×3 (02:19→15:18)
[2019-12-18] MEDS: Omeprazole 20 MG Cap.CR PO SCH (06:43)
[2019-12-18] MEDS: Prochlorperazine 5 MG Tab PO PRN (06:43)
[2019-12-18] MEDS: Carbidopa/Levodopa 25-100 MG Tab PO SCH ×3 (07:39→20:06)
[2019-12-18] MEDS: Flecainide 50 MG Tab PO SCH ×2 (07:40→20:05)
[2019-12-18] MEDS: Allopurinol 300 MG Tab PO SCH (07:40)
[2019-12-18] MEDS: Metoprolol Succinate 50 MG Tab.ER PO SCH (07:40)
[2019-12-18] MEDS: Aspirin 81 MG Tab.Chew PO SCH (07:42)
[2019-12-18 08:12] LABS: CHLORIDE,CL 102 mmol/L (98-107); SODIUM,NA 135 mmol/L (136-145)
[2019-12-18 08:13] LABS: ANION GAP 12.3 mmol/L (10-20)
--- NOTE | 2019-12-18 10:23 | PCM.PN ---
- General Info Date of Service: 12/18/19 Subjective Update: 74 yo male hospital day #3 admitted with sepsis secondary to UTI in the setting of chemotherapy induced neutropenia. He states he is feeling much better this morning. He slept better last night. He has been able to move himself around in bed more easily. He notes his dysuria is also resolved. He was febrile yesterday afternoon but this did come down with tylenol. He had an emesis at that time as well. This morning, he is not having any nausea. He did have BM. - Review of Systems General: Reports: No Symptoms HEENT: Reports: No Symptoms Pulmonary: Reports: No Symptoms Cardiovascular: Reports: No Symptoms Gastrointestinal: Reports: No Symptoms Genitourinary: Reports: No Symptoms Musculoskeletal: Reports: No Symptoms Skin: Reports: No Symptoms Neurological: Reports: No Symptoms - Patient Data Vitals - Most Recent: Last Vital Signs Temp 36.6 C 12/18/19 09:05 Pulse 91 12/18/19 09:05 Resp 18 12/18/19 09:05 BP 106/64 12/18/19 09:05 Pulse Ox 96 12/18/19 09:05 Weight - Most Recent: 79.016 kg I&O - Last 24 Hours: Intake & Output 12/17/19 12/18/19 12/18/19 22:59 06:59 14:59 Intake Total 860 220 360 Output Total 400 450 Balance 460 -230 360 Lab Results Last 24 Hours: Laboratory Results - last 24 hr 12/18/19 12/18/19 Range/Units 07:45 07:45 WBC 5.0 (4.0-10.0) x10^3/uL RBC 2.22 L (4.5-6.0) x10^6/uL Hgb 7.8 L (14.0-18.0) g/dL Hct 22.5 L (40.0-52.0) % MCV 101.4 H D (78.0-93.0) fL MCH 35.1 H (26.0-32.0) pg MCHC 34.7 (32.0-36.0) g/dL RDW Coeff of [place] 14.8 (10.0-15.0) % Plt Count 47 L* (130-400) x10^3/uL Neut % (Auto) 62.1 (50.0-80.0) % Lymph % (Auto) 18.5 L (25.0-50.0) % [place] % (Auto) 19.0 H (2.0-11.0) % Eos % (Auto) 0.2 (0.0-4.0) % Baso % (Auto) 0.2 (0.2-1.2) % Sodium 135 L (136-145) mmol/L Potassium 3.3 L (3.5-5.1) mmol/L Chloride 102 (98-107) mmol/L Carbon Dioxide 24 (21-32) mmol/L Anion Gap 12.3 (10-20) mmol/L BUN 9 (7-18) mg/dL Creatinine 0.8 (0.70-1.30) mg/dL Est Cr Clr Drug Dosing 86.18 mL/min Estimated GFR (MDRD) > 60 Glucose 94 (74-106) mg/dL Calcium 8.2 L (8.5-10.1) mg/dL Joseph Results Last 24 Hours: Microbiology 12/16/19 17:05 Urine Culture - Final Urine, Clean Catch Escherichia Coli 12/16/19 17:13 Aerobic Blood Culture - Preliminary Blood - Venous - Lab Draw NO GROWTH AFTER 1 DAY Anaerobic Blood Culture - Preliminary NO GROWTH AFTER 1 DAY 12/16/19 17:07 Aerobic Blood Culture - Preliminary Blood - Venous NO GROWTH AFTER 1 DAY Anaerobic Blood Culture - Preliminary NO GROWTH AFTER 1 DAY Med Orders - Current: Current Medications Acetaminophen (Tylenol) 650 mg PO Q4H PRN PRN Reason: Pain (Mild 1-3)/fever Last Admin: 12/17/19 16:02 Dose: 650 mg Allopurinol (Zyloprim) 150 mg PO DAILY [facility] Last Admin: 12/18/19 07:40 Dose: 150 mg Aspirin (Aspirin) 81 mg PO DAILY [facility] Last Admin: 12/18/19 07:42 Dose: 81 mg Carbidopa/Levodopa (Sinemet 25-100 Mg) 1.5 tab PO TID [facility] Last Admin: 12/18/19 07:39 Dose: 1.5 tab Flecainide Acetate (Tambocor) 50 mg PO Q12HR [facility] Last Admin: 12/18/19 07:40 Dose: 50 mg Piperacillin Sod/Tazobactam (Sod 3.375 gm/ Sodium Chloride) 100 mls @ 200 mls/ hr IV Q6H [facility] Last Admin: 12/18/19 08:59 Dose: 200 mls/hr Metoprolol Succinate (Toprol Xl) 50 mg PO DAILY [facility] Last Admin: 12/18/19 07:40 Dose: 50 mg Omeprazole (Omeprazole) 20 mg PO DAILY@0700 [facility] Last Admin: 12/18/19 06:43 Dose: 20 mg Ondansetron HCl (Zofran Odt) 8 mg PO Q8H PRN PRN Reason: NAUSEA Prochlorperazine Maleate (Compazine) 10 mg PO QID PRN PRN Reason: VOMITING Last Admin: 12/18/19 06:43 Dose: 10 mg Simvastatin (Zocor) 10 mg PO BEDTIME [facility] Last Admin: 12/17/19 20:36 Dose: 10 mg Sodium Chloride (Saline Flush) 10 ml FLUSH ASDIRECTED PRN PRN Reason: Keep Vein Open Last Admin: 12/16/19 22:57 Dose: 10 ml Sodium Chloride ([place] Nasal [place]) 0 ml NASBOTH Q2H PRN PRN Reason: Congestion Discontinued Medications Acetaminophen (Tylenol Extra Strength) 1,000 mg PO ONETIME ONE Stop: 12/16/19 18:19 Last Admin: 12/16/19 18:38 Dose: 1,000 mg Piperacillin Sod/Tazobactam (Sod 4.5 gm/ Sodium Chloride) 100 mls @ 200 mls/hr IV STAT ONE Stop: 12/16/19 17:35 Last Admin: 12/16/19 17:28 Dose: 200 mls/hr Vancomycin HCl 1.5 gm/ Sodium (Chloride) 250 mls @ 165 mls/hr IV STAT ONE Stop: 12/16/19 18:47 Last Admin: 12/16/19 18:04 Dose: 165 mls/hr Sodium Chloride (Normal Saline) 1,000 mls @ 500 mls/hr IV ASDIRECTED [facility] Sodium Chloride (Normal Saline) 1,000 mls @ 75 mls/hr IV ASDIRECTED [facility] Last Admin: 12/17/19 08:53 Dose: 75 mls/hr Piperacillin Sod/Tazobactam (Sod 3.375 gm/ Sodium Chloride) 100 mls @ 200 mls/ hr IV Q6H [facility] Last Admin: 12/18/19 02:19 Dose: 200 mls/hr Iopamidol (Isovue-300 (61%)) 100 ml IVPUSH ONETIME ONE Stop: 12/16/19 18:19 Last Admin: 12/16/19 18:42 Dose: 100 ml - Exam General: Alert, Oriented, Cooperative, No Acute Distress HEENT: Mucous Membr. Moist/[place] Neck: Supple, Trachea Midline, No Thyromegaly. No: Lymphadenopathy Lungs: Clear to Auscultation, Normal Respiratory Effort Cardiovascular: Regular Rate, Regular Rhythm, No Murmurs GI/Abdominal Exam: Normal Bowel Sounds, Soft, Non-Tender, No Organomegaly, No Distention, No Mass Extremities: Non-Tender, Normal Capillary Refill, Pedal Edema (Trace pedal edema to the right ankle) Peripheral Pulses: 2+: Radial (L), Radial (R) Skin: Warm, Dry, Intact Neurological: No New Focal Deficit Sepsis Event Note - Evaluation Sepsis Screening Result: No Definite Risk - Focused Exam Vital Signs: Vital Signs Temp Pulse Pulse Resp BP BP Pulse Ox 12/18/19 09:05 36.6 C 91 18 106/64 96 12/18/19 07:40 98 131/72 12/18/19 04:12 36.2 C 96 18 128/72 96 12/18/19 02:59 36.6 C 97 18 124/70 95 12/18/19 01:37 36.1 C 100 18 127/72 96 Date Exam was Performed: 12/18/19 Time Exam was Performed: 10:19 - Problem List & Annotations (1) Sepsis SNOMED Code(s): 13832532 Code(s): A41.9 - SEPSIS, UNSPECIFIED ORGANISM Status: Acute Current Visit : Yes Qualifiers: Sepsis type: sepsis due to unspecified organism Sepsis acute organ dysfunction status: without acute organ dysfunction Qualified Code(s): A41.9 - Sepsis, unspecified organism (2) UTI (urinary tract infection) SNOMED Code(s): 76265886 Code(s): N39.0 - URINARY TRACT INFECTION, SITE NOT SPECIFIED Status: Acute Current Visit: Yes Qualifiers: Urinary tract infection type: site unspecified Hematuria presence: without hematuria Qualified Code(s): N39.0 - Urinary tract infection, site not specified (3) Neutropenic fever SNOMED Code(s): 238309958 Code(s): D70.9 - NEUTROPENIA, UNSPECIFIED; R50.81 - FEVER PRESENTING WITH CONDITIONS CLASSIFIED ELSEWHERE Status: Acute Current Visit: Yes (4) Antineoplastic chemotherapy induced pancytopenia SNOMED Code(s): 978199216553724 Code(s): D61.810 - ANTINEOPLASTIC CHEMOTHERAPY INDUCED PANCYTOPENIA; T45.1X5A - ADVERSE EFFECT OF ANTINEOPLASTIC AND IMMUNOSUP DRUGS, INIT Status: Chronic Current Visit: Yes (5) CAD (coronary artery disease) SNOMED Code(s): 41947325 Code(s): I25.10 - ATHSCL HEART DISEASE OF [place] CORONARY ARTERY W/O ANG PCTRS Status: Chronic Current Visit: Yes (6) Elevated troponin SNOMED Code(s): 593417511, 122253045, 023161079 Code(s): R79.89 - OTHER SPECIFIED ABNORMAL FINDINGS OF BLOOD CHEMISTRY Status: Acute Current Visit: Yes (7) A-fib SNOMED Code(s): 37858507 Code(s): I48.91 - UNSPECIFIED ATRIAL FIBRILLATION Status: Chronic Current Visit: No (8) Atrial flutter SNOMED Code(s): 9380235 Code(s): I48.92 - UNSPECIFIED ATRIAL FLUTTER Status: Chronic Current Visit: No (9) Celiac disease SNOMED Code(s): 171700993 Code(s): K90.0 - CELIAC DISEASE Status: Chronic Current Visit: No (10) Esophageal reflux SNOMED Code(s): 179326785 Code(s): K21.9 - GASTRO-ESOPHAGEAL REFLUX DISEASE WITHOUT ESOPHAGITIS Status: Chronic Current Visit: No (11) Gout SNOMED Code(s): 81167498 Code(s): M10.9 - GOUT, UNSPECIFIED Status: Chronic Current Visit: No Qualifiers: Gout site: multiple sites Gout etiology: idiopathic Chronicity: chronic Presence of tophus: without tophus Qualified Code(s): M1A.09X0 - Idiopathic chronic gout, multiple sites, without tophus (tophi) (12) Hyperlipidemia SNOMED Code(s): 97030439 Code(s): E78.5 - HYPERLIPIDEMIA, UNSPECIFIED Status: Chronic Current Visit: No Qualifiers: Hyperlipidemia type: mixed hyperlipidemia Qualified Code(s): E78.2 - Mixed hyperlipidemia (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 SNOMED Code(s): 903329593 Code(s): C49.22 - MALIG NEOPLM OF CONN AND SOFT TISS OF LEFT LOW LIMB, INC HIP Status: Chronic Current Visit: No (14) Parkinson disease SNOMED Code(s): 62192261 Code(s): G20 - PARKINSON'S DISEASE Status: Chronic Current Visit: No - Problem List Review Problem List Initiated/Reviewed/Updated: Yes - My Orders Last 24 Hours: My Active Orders 12/18/19 09:00 Piperacillin/Tazobactam [Zosyn] 3.375 gm Sodium Chloride 0.9% [Normal Saline] 100 ml IV Q6H - Assessment Assessment:: 74 yo male hospital day #3 admitted with sepsis secondary to UTI in the setting of chemotherapy induced neutropenia. Labs improved today. He is feeling much better today as well. - Plan Plan:: #1 Sepsis, secondary to #2, resolved #2 UTI #3 Neutropenic fever #4 Chemotherapy induced pancytopenia #5 Liposarcoma - Met sepsis criteria on admission with tachycardia and fever. No longer meeting sepsis criteria. - WBC stable. - Urine culture growing E. coli. Susceptibilities are pending. - Blood cultures negative to date. - Continue zosyn. Will plan to transition to oral antibiotics once susceptibilities available and >24 hours without fever. - Tylenol PRN fever. - Will bolus IV fluids PRN. #6 CAD, mild #7 Elevated troponin #8 Atrial fibrillation #9 Atrial flutter - Troponins elevated but stable. EKG reviewed with cardiology and without immediate concerns. - He has an echo planned for this week. - Continue home medications with the exception of his lasix. #10 Celiac Disease #11 GERD #12 Gout #13 Hyperlipidemia #14 Parkinson's Disease - Continue home medications. Patient will be remain on acute today - anticipate he will be prepared for dismissal tomorrow as long as he is afebrile today, susceptibility results are available, and he feels his strength is improved enough to return home. Nursing to work on getting him transferred to the chair today. Details under problems as above. Continue home medications apart from bowel regimen, vitamins, and lasix. Patient wishes to be full code - discussed on admission. No pharmacologic VTE prophylaxis at this time given thrombocytopenia.
[2019-12-18] MEDS: Simvastatin 10 MG Tab PO SCH (20:06)
[2019-12-18] MEDS: Cephalexin 500 MG Cap PO SCH (20:06)
[2019-12-19] MEDS: Omeprazole 20 MG Cap.CR PO SCH (06:04)
[2019-12-19 06:48] LABS: CHLORIDE,CL 105 mmol/L (98-107); SODIUM,NA 137 mmol/L (136-145)
[2019-12-19 06:49] LABS: ANION GAP 9.4 mmol/L (10-20)
[2019-12-19] MEDS: Cephalexin 500 MG Cap PO SCH (08:12)
[2019-12-19] MEDS: Carbidopa/Levodopa 25-100 MG Tab PO SCH (08:12)
[2019-12-19] MEDS: Flecainide 50 MG Tab PO SCH (08:13)
[2019-12-19] MEDS: Aspirin 81 MG Tab.Chew PO SCH (08:13)
[2019-12-19] MEDS: Metoprolol Succinate 50 MG Tab.ER PO SCH (08:13)
[2019-12-19] MEDS: Allopurinol 300 MG Tab PO SCH (08:13)
--- NOTE | 2019-12-19 08:17 | PCM.DCSUM1 ---
Discharge Summary - Hospital Course Brief History: Mr. Vega is a 74 yo male who was admitted with sepsis and UTI after presenting to the ER with fever and generalized weakness. - Discharge Data Discharge Date: 12/19/19 Discharge Disposition: Home, Self-Care 01 Condition: Good - Referral to Home Health Primary Care Physician: Suri Daniels MD - Discharge Diagnosis/Problem(s) (1) Sepsis SNOMED Code(s): 06744646 ICD Code: A41.9 - SEPSIS, UNSPECIFIED ORGANISM Status: Acute Current Visit: Yes Qualifiers: Sepsis type: sepsis due to unspecified organism Sepsis acute organ dysfunction status: without acute organ dysfunction Qualified Code(s): A41.9 - Sepsis, unspecified organism (2) UTI (urinary tract infection) SNOMED Code(s): 84536611 ICD Code: N39.0 - URINARY TRACT INFECTION, SITE NOT SPECIFIED Status: Acute Current Visit: Yes Qualifiers: Urinary tract infection type: site unspecified Hematuria presence: without hematuria Qualified Code(s): N39.0 - Urinary tract infection, site not specified (3) Neutropenic fever SNOMED Code(s): 411850730 ICD Code: D70.9 - NEUTROPENIA, UNSPECIFIED; R50.81 - FEVER PRESENTING WITH CONDITIONS CLASSIFIED ELSEWHERE Status: Acute Current Visit: Yes (4) Antineoplastic chemotherapy induced pancytopenia SNOMED Code(s): 161072929056023 ICD Code: D61.810 - ANTINEOPLASTIC CHEMOTHERAPY INDUCED PANCYTOPENIA; T45.1X5A - ADVERSE EFFECT OF ANTINEOPLASTIC AND IMMUNOSUP DRUGS, INIT Status: Chronic Current Visit: Yes (5) CAD (coronary artery disease) SNOMED Code(s): 68333676 ICD Code: I25.10 - ATHSCL HEART DISEASE OF [place] CORONARY ARTERY W/O ANG PCTRS Status: Chronic Current Visit: Yes (6) Elevated troponin SNOMED Code(s): 887161383, 140157257, 837606552 ICD Code: R79.89 - OTHER SPECIFIED ABNORMAL FINDINGS OF BLOOD CHEMISTRY Status: Acute Current Visit: Yes (7) A-fib SNOMED Code(s): 89591841 ICD Code: I48.91 - UNSPECIFIED ATRIAL FIBRILLATION Status: Chronic Current Visit: No (8) Atrial flutter SNOMED Code(s): 2129934 ICD Code: I48.92 - UNSPECIFIED ATRIAL FLUTTER Status: Chronic Current Visit: No (9) Celiac disease SNOMED Code(s): 314941714 ICD Code: K90.0 - CELIAC DISEASE Status: Chronic Current Visit: No (10) Esophageal reflux SNOMED Code(s): 380103568 ICD Code: K21.9 - GASTRO-ESOPHAGEAL REFLUX DISEASE WITHOUT ESOPHAGITIS Status: Chronic Current Visit: No (11) Gout SNOMED Code(s): 21049962 ICD Code: M10.9 - GOUT, UNSPECIFIED Status: Chronic Current Visit: No Qualifiers: Gout site: multiple sites Gout etiology: idiopathic Chronicity: chronic Presence of tophus: without tophus Qualified Code(s): M1A.09X0 - Idiopathic chronic gout, multiple sites, without tophus (tophi) (12) Hyperlipidemia SNOMED Code(s): 72676680 ICD Code: E78.5 - HYPERLIPIDEMIA, UNSPECIFIED Status: Chronic Current Visit: No Qualifiers: Hyperlipidemia type: mixed hyperlipidemia Qualified Code(s): E78.2 - Mixed hyperlipidemia (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 His vital signs improved. He was able to eat and drink without any issues and has been maintaining hydration for >48 hours with oral intake. His strength progressively improved as well to the point that he is able to assist with transferring today at near his normal. His dysuria resolved. Yesterday, his final culture and susceptibility results returned and he was transitioned from IV antibiotics to cephalexin without any incident. He will be discharged home today to complete a full 7 day course of antibiotics. His blood counts were monitored daily and remained stable. His hospitalization was otherwise uncomplicated. - Patient Instructions Diet: Usual Diet as Tolerated Activity: As Tolerated - Discharge Plan Prescriptions/Med Rec: cephALEXin [Keflex] 500 mg PO BID #9 cap Home Medications: Home Meds Aspirin 81 mg PO DAILY 02/05/19 [History] Carbidopa/Levodopa [Sinemet 25-100 mg Tablet] 1.5 each PO TID 02/05/19 [History] Cholecalciferol (Vitamin D3) [Vitamin D3] 4,000 unit PO DAILY 02/05/19 [History] Flecainide [Tambocor] 50 mg PO Q12H 02/05/19 [History] Lansoprazole [Prevacid] 15 mg PO DAILY 02/05/19 [History] Metoprolol Succinate [Toprol XL 100mg] 50 mg PO DAILY 02/05/19 [History] Prochlorperazine Maleate [Compazine] 10 mg PO QID PRN 02/05/19 [History] allopurinoL [Zyloprim] 150 mg PO DAILY 02/05/19 [History] Acetaminophen [Tylenol] 650 mg PO Q4H PRN 12/16/19 [History] Cyanocobalamin (Vitamin B12) [Vitamin B12] 250 mcg PO DAILY 12/16/19 [History] Docusate Sodium [Colace] 100 mg PO BID 12/16/19 [History] Multivitamin with Minerals [Multiple Vitamin] 1 tab PO DAILY 12/16/19 [History] Ondansetron [Zofran] 8 mg PO Q8H PRN 12/16/19 [History] Simvastatin [Zocor] 10 mg PO BEDTIME 12/16/19 [History] Sodium Chloride [Saline Nasal [place]] 2 sprays INH Q2HR PRN 12/16/19 [History] dexAMETHasone [Dexamethasone] 8 mg PO DAILY 12/16/19 [History] polyethylene glycoL 3350 [MiraLAX] 1 pack PO DAILY PRN 12/16/19 [History] cephALEXin [Keflex] 500 mg PO BID #9 cap 12/19/19 [Rx] Forms: ED Department Discharge Referrals: Suri Daniels MD [Primary Care Provider] - - Discharge Summary/Plan Comment DC Time >30 min.: No - General Info Date of Service: 12/19/19 Subjective Update: Patient states he is feeling well today. He was able to assist in transferring from the bed to the chair without any issue. He feels his strength is essentially back to normal. He has not had any fever or vomiting for >24 hours. He has been eating well. He denies any dysuria. - Review of Systems General: Reports: No Symptoms HEENT: Reports: No Symptoms Pulmonary: Reports: No Symptoms Cardiovascular: Reports: No Symptoms Gastrointestinal: Reports: No Symptoms Genitourinary: Reports: No Symptoms Musculoskeletal: Reports: No Symptoms Skin: Reports: No Symptoms Neurological: Reports: No Symptoms - Patient Data Vitals - Most Recent: Last Vital Signs Temp 36.1 C 12/19/19 05:37 Pulse 95 12/19/19 05:37 Resp 18 12/19/19 05:37 BP 140/79 12/19/19 05:37 Pulse Ox 96 12/19/19 05:37 Weight - Most Recent: 79.016 kg I&O - Last 24 hours: Intake & Output 12/18/19 12/19/19 12/19/19 22:59 06:59 14:59 Intake Total 420 0 Output Total 350 150 Balance 70 -150 Lab Results - Last 24 hrs: Laboratory Results - last 24 hr 12/18/19 12/18/19 12/19/19 Range/Units 07:45 07:45 06:15 WBC 5.0 3.3 L (4.0-10.0) x10^3/uL RBC 2.22 L 2.25 L (4.5-6.0) x10^6/uL Hgb 7.8 L 7.8 L (14.0-18.0) g/dL Hct 22.5 L 22.8 L (40.0-52.0) % MCV 101.4 H D 101.3 H (78.0-93.0) fL MCH 35.1 H 34.7 H (26.0-32.0) pg MCHC 34.7 34.2 (32.0-36.0) g/dL RDW Coeff of [place] 14.8 14.6 (10.0-15.0) % Plt Count 47 L* 61 L (130-400) x10^3/uL Neut % (Auto) 62.1 54.3 (50.0-80.0) % Lymph % (Auto) 18.5 L 25.2 (25.0-50.0) % [place] % (Auto) 19.0 H 19.9 H (2.0-11.0) % Eos % (Auto) 0.2 0.3 (0.0-4.0) % Baso % (Auto) 0.2 0.3 (0.2-1.2) % Sodium 135 L (136-145) mmol/L Potassium 3.3 L (3.5-5.1) mmol/L Chloride 102 (98-107) mmol/L Carbon Dioxide 24 (21-32) mmol/L Anion Gap 12.3 (10-20) mmol/L BUN 9 (7-18) mg/dL Creatinine 0.8 (0.70-1.30) mg/dL Est Cr Clr Drug Dosing 86.18 mL/min Estimated GFR (MDRD) > 60 Glucose 94 (74-106) mg/dL Calcium 8.2 L (8.5-10.1) mg/dL C-Reactive Protein (<=0.9) mg/dL 12/19/19 Range/Units 06:15 WBC (4.0-10.0) x10^3/uL RBC (4.5-6.0) x10^6/uL Hgb (14.0-18.0) g/dL Hct (40.0-52.0) % MCV (78.0-93.0) fL MCH (26.0-32.0) pg MCHC (32.0-36.0) g/dL RDW Coeff of [place] (10.0-15.0) % Plt Count (130-400) x10^3/uL Neut % (Auto) (50.0-80.0) % Lymph % (Auto) (25.0-50.0) % [place] % (Auto) (2.0-11.0) % Eos % (Auto) (0.0-4.0) % Baso % (Auto) (0.2-1.2) % Sodium 137 (136-145) mmol/L Potassium 3.4 L (3.5-5.1) mmol/L Chloride 105 (98-107) mmol/L Carbon Dioxide 26 (21-32) mmol/L Anion Gap 9.4 L (10-20) mmol/L BUN 6 L (7-18) mg/dL Creatinine 0.7 (0.70-1.30) mg/dL Est Cr Clr Drug Dosing 98.49 mL/min Estimated GFR (MDRD) > 60 Glucose 92 (74-106) mg/dL Calcium 8.3 L (8.5-10.1) mg/dL C-Reactive Protein 8.7 H (<=0.9) mg/dL HALEY Results - Last 24 hrs: Microbiology 12/16/19 17:13 Aerobic Blood Culture - Preliminary Blood - Venous - Lab Draw NO GROWTH AFTER 2 DAYS Anaerobic Blood Culture - Preliminary NO GROWTH AFTER 2 DAYS 12/16/19 17:07 Aerobic Blood Culture - Preliminary Blood - Venous NO GROWTH AFTER 2 DAYS Anaerobic Blood Culture - Preliminary NO GROWTH AFTER 2 DAYS 12/16/19 17:05 Urine Culture - Final Urine, Clean Catch Escherichia Coli Med Orders - Current: Current Medications Acetaminophen (Tylenol) 650 mg PO Q4H PRN PRN Reason: Pain (Mild 1-3)/fever Last Admin: 12/17/19 16:02 Dose: 650 mg Allopurinol (Zyloprim) 150 mg PO DAILY [facility] Last Admin: 12/18/19 07:40 Dose: 150 mg Aspirin (Aspirin) 81 mg PO DAILY [facility] Last Admin: 12/18/19 07:42 Dose: 81 mg Carbidopa/Levodopa (Sinemet 25-100 Mg) 1.5 tab PO TID [facility] Last Admin: 12/18/19 20:06 Dose: 1.5 tab Cephalexin (Keflex) 500 mg PO BID [facility] Last Admin: 12/18/19 20:06 Dose: 500 mg Flecainide Acetate (Tambocor) 50 mg PO Q12HR [facility] Last Admin: 12/18/19 20:05 Dose: 50 mg Metoprolol Succinate (Toprol Xl) 50 mg PO DAILY [facility] Last Admin: 12/18/19 07:40 Dose: 50 mg Omeprazole (Omeprazole) 20 mg PO DAILY@0700 [facility] Last Admin: 12/19/19 06:04 Dose: 20 mg Ondansetron HCl (Zofran Odt) 8 mg PO Q8H PRN PRN Reason: NAUSEA Prochlorperazine Maleate (Compazine) 10 mg PO QID PRN PRN Reason: VOMITING Last Admin: 12/18/19 06:43 Dose: 10 mg Simvastatin (Zocor) 10 mg PO BEDTIME [facility] Last Admin: 12/18/19 20:06 Dose: 10 mg Sodium Chloride (Saline Flush) 10 ml FLUSH ASDIRECTED PRN PRN Reason: Keep Vein Open Last Admin: 12/16/19 22:57 Dose: 10 ml Sodium Chloride ([place] Nasal [place]) 0 ml NASBOTH Q2H PRN PRN Reason: Congestion Discontinued Medications Acetaminophen (Tylenol Extra Strength) 1,000 mg PO ONETIME ONE Stop: 12/16/19 18:19 Last Admin: 12/16/19 18:38 Dose: 1,000 mg Piperacillin Sod/Tazobactam (Sod 4.5 gm/ Sodium Chloride) 100 mls @ 200 mls/hr IV STAT ONE Stop: 12/16/19 17:35 Last Admin: 12/16/19 17:28 Dose: 200 mls/hr Vancomycin HCl 1.5 gm/ Sodium (Chloride) 250 mls @ 165 mls/hr IV STAT ONE Stop: 12/16/19 18:47 Last Admin: 12/16/19 18:04 Dose: 165 mls/hr Sodium Chloride (Normal Saline) 1,000 mls @ 500 mls/hr IV ASDIRECTED [facility] Sodium Chloride (Normal Saline) 1,000 mls @ 75 mls/hr IV ASDIRECTED [facility] Last Admin: 12/17/19 08:53 Dose: 75 mls/hr Piperacillin Sod/Tazobactam (Sod 3.375 gm/ Sodium Chloride) 100 mls @ 200 mls/ hr IV Q6H [facility] Last Admin: 12/18/19 02:19 Dose: 200 mls/hr Piperacillin Sod/Tazobactam (Sod 3.375 gm/ Sodium Chloride) 100 mls @ 200 mls/ hr IV Q6H [facility] Last Admin: 12/18/19 15:18 Dose: 200 mls/hr Iopamidol (Isovue-300 (61%)) 100 ml IVPUSH ONETIME ONE Stop: 12/16/19 18:19 Last Admin: 12/16/19 18:42 Dose: 100 ml - Exam General: Reports: Alert, Oriented, Cooperative, No Acute Distress HEENT: Reports: Mucous Membr. Moist/[place] Neck: Reports: Supple, Trachea Midline, No Thyromegaly. Denies: Lymphadenopathy Lungs: Reports: Clear to Auscultation, Normal Respiratory Effort Cardiovascular: Reports: Regular Rate, Regular Rhythm, No Murmurs GI/Abdominal Exam: Normal Bowel Sounds, Soft, Non-Tender, No Organomegaly, No Distention, No Mass Extremities: Non-Tender, No Pedal Edema, Normal Capillary Refill Skin: Reports: Warm, Dry, Intact *Q Meaningful Use (DIS) - VTE *Q VTE Anticoagulation Contraindications: Medical/Procedure Contrai
== END 2019-12-19 10:25 | disposition home or self-care (01) | DRG 871 ==
LOC: VM.ED 16:39 → VM.MS 18:08
PROVIDERS: ADMIT Family Medicine; ATTEND Family Medicine
DX: A41.9 Sepsis, unspecified organism (principal); D61.810 Antineoplastic chemotherapy induced pancytopenia; D61.818 Other pancytopenia; N39.0 Urinary tract infection, site not specified; C78.00 Secondary malignant neoplasm of unspecified lung; I48.92 Unspecified atrial flutter; E78.00 Pure hypercholesterolemia, unspecified; C49.22 Malignant neoplasm of connective and soft tissue of left lower limb, including hip; M19.90 Unspecified osteoarthritis, unspecified site; T45.1X5A Adverse effect of antineoplastic and immunosuppressive drugs, initial encounter; Z87.891 Personal history of nicotine dependence; Z89.612 Acquired absence of left leg above knee; I25.10 Atherosclerotic heart disease of native coronary artery without angina pectoris; R79.89 Other specified abnormal findings of blood chemistry; I48.91 Unspecified atrial fibrillation; M1A.09X0 Idiopathic chronic gout, multiple sites, without tophus (tophi); K21.9 Gastro-esophageal reflux disease without esophagitis; G20 Parkinson's disease; D69.6 Thrombocytopenia, unspecified; K90.0 Celiac disease; E78.5 Hyperlipidemia, unspecified; D64.9 Anemia, unspecified; Z79.82 Long term (current) use of aspirin; Z79.899 Other long term (current) drug therapy; Z90.49 Acquired absence of other specified parts of digestive tract
CPT/HCPCS: 36415; 71045; 71260; 80048; 80053; 81001; 83605; 83735; 84100; 84443; 84484; 85025; 85610; 86140; 87040; 87086; 87088; 87186; 87804; 87804-59; 93005; 93010; 99284-GF; A9270-GY; J1642; J2543; J3370; J7030; J7050; Q0164; Q9967